=== PATIENT | female | born 1960 | race Caucasian/White ===

== ENCOUNTER 2017-01-22 05:24 | Day surgery (SDC) | payer BC ==
[2017-01-17 09:55] VITALS: BMI 24.0
--- NOTE | 2017-01-18 16:11 | HISTORY & PHYSICAL EXAMINATION ---
DATE OF ADMISSION: 01/22/2017 PREOPERATIVE HISTORY AND PHYSICAL HISTORY OF PRESENT ILLNESS: A 56-year-old female presents for initial evaluation of pain at the recommendation of Dr. Lamar's, located in the right heel, condition has existed for several months, described as burning, sharp, stabbing, began several months ago. She denies any precipitating event or a recent exposure history for this condition. This condition is graded as a 6 on a 10 point scale, gradually worsened over time. Associated signs and symptoms include swelling over the area. She notes Cam walker improve the condition. Oral medication did not help that much, physical therapy increased her discomfort, rest somewhat improved her condition. The patient notes in August is when she notes the more severe pain had started and underwent 7 weeks of therapy and then stopped as it being made worse. She then wore the Cam walker for 2 months, most of the time and she is currently on Percocet for back discomfort which barely touches her foot pain. At nighttime, she notes she is unable to lay flat on her bed or move a certain way, she is uncomfortable. Dr. Lamar in [place] has been treating her conservatively for the past several months and recommended surgical intervention, referred her to our office, due to failure of conservative care. She has been diabetic for over a year, has recently lost some weight and she was able to stop her insulin that she had previously been on. PAST SURGICAL HISTORY: Breast surgery, neck surgery, heart surgery, back surgery, hysterectomy, and gallbladder removal. 2 PAST MEDICAL HISTORY: Gastrointestinal problems, COPD, cardiac disease, stroke, anxiety disorder, depression, arthritis and back problems. MEDICATIONS: Sominex, trazodone, Effexor, Percocet, gabapentin, and verapamil. ALLERGIES: NONSTEROIDALS, CIPRO, AND PENICILLINS. FAMILY HISTORY: Anxiety, stress disorder, depression, back problems, defects, cardiovascular disease, COPD, diabetes, gastrointestinal problems, high cholesterol, hypertension, stroke, cancer, thyroid disease. SOCIAL HISTORY: The patient denies smoking, alcohol use, illicit drug use, and STDs. REVIEW OF SYSTEMS: Unremarkable except chief complaint. PHYSICAL EXAMINATION: VITAL SIGNS: Height 5 feet 7 inches, weight 151 pounds. Body mass index 24. CONSTITUTIONAL: The patient appears well-developed and nourished with good attention to body grooming and habitus. LOWER EXTREMITY VASCULAR: DP palpable. PT palpable. PT was 2/4 bilaterally, DP is 1/4 bilaterally. Popliteal was 1/4 bilaterally. Digital hair is present. DERMATOLOGIC: Right Achilles tendon shows redness. Inspection and palpation of bursa shows soft, skin colored, soft elevated painful mass over the Achilles tendon. NEUROLOGICAL: Touch, pin, vibratory pain, proprioception sensations are normal. Epicritic sensation per Napoleon-Ingrid monofilament 5.07 is intact. MUSCULOSKELETAL: Muscle tone is normal. Muscle strength is 5/5 all groups tested. Examination of posterior aspect of the heel reveals decreased ankle joint, dorsiflexion, knee extended on the right, severe pain directly over the Achilles attachment site, bony prominence posterior superior aspect of the calcaneus and 2 focal areas of tenderness. The heel shows an enlarged posterior superior aspect of the calcaneus with pain to palpation directly over the insertional area of the Achilles tendon. Decreased joint range of motion with knee flexed and extended. IMPRESSION: 1. Ambrosio deformity. 2. Achilles tendinitis, left. 3. Equinus, right. 4. Achilles bursitis, right. 5. Difficulty walking, right lower extremity pain, leg and foot, right. PLAN: I explained the mechanical etiology of discomfort. Treatment consisted of rest, ice, analgesics, nonsteroidal anti-inflammatory drugs, night splints, physical therapy, steroid injections, stretching exercises, orthotics, immobilization. I explained the likely mechanical etiology of the Ambrosio deformity is often called a pump bump, that can occur in 1 or both feet, most commonly caused by the shape of the calcaneus, biomechanics, hereditary and high arches and tight Achilles tendon, the prominent bump on the back of the heel is a bony enlargement that often leads to painful bursitis between the tendon and the bone due to the shoe irritation. In the cases of high arches, the calcaneus is tilted toward the Achilles tendon causing the upper most superior portion of the calcaneus to rub against the tendon. Achilles tendonitis is often associated with the deformity due to local irritation and thickening the tissues. Treatment consists of rest, ice, analgesics, nonsteroidals, anti-inflammatory drugs, heel lifts, heel pad, shoe modification, night splints, physical therapy, steroid injections, stretching exercises, orthotics, immobilization, avoid walking uphill. The patient was informed that nonsurgical treatment is targeted to reduce inflammation of the soft tissue. These conservative treatments will resolve the bursitis, but will not likely shrink the bony projection. Treatment usually begins with nonsurgical measures and surgery is considerable in all other measures have failed and pain is intolerable. Surgical procedures to be performed: 1. Ambrsoio resection. 2. Removal of exostosis posterior calcaneus with possible reattachment of Achilles tendon. 3. Achilles tendon lengthening. 4. Achilles tendon lengthening, right lower extremity. This will be performed under general anesthesia as an outpatient at the hospital in the prone position. Procedure, risks and complications were fully reviewed with the patient. Consent form and foot diagram and illustration reviewed in all their entirety. All the patient's questions were answered. Complications were discussed in detail with the patient including pain, infection, swelling that may or may not be excessive, pins and needles feeling, numbness, metatarsalgia, excessive bleeding, delay or nonhealing of bone, delay or nonhealing of skin, enlarged scar, failure of the procedure, reoccurrence or worsening of condition which may or may not require further surgery, adverse reaction to anesthesia, suture or other implant material, loss of toe, foot, or leg, flail toe, stiff toe, short toe, elevated toe, transfer lesion or callus, peripheral neuritis. Complications such as phlebitis, damage to nerves or vascular structures, recurrent pain, chronic nerve pain or damage, and general medical complications. The patient will required to be nonweightbearing in a cast, immobilization for a minimum of 6-8 weeks followed by weightbearing, cast, immobilization for 2-4 weeks and not return to dress shoes for 3 months depending on the postop edema. The patient is aware this is an elective type procedure and I recommend a second opinion. The patient stated they understood. Consent form was signed with a copy of the foot diagram issued to the patient. Verbal and postoperative instructions were given. The patient will return to the office for a postoperative visit. JJ
[~2017-01-22] VITALS: Ht 170.2 cm; Wt 70.0 kg
[~2017-01-22 05:24] MED LIST: CARI350T28 PO; DIPH25TA4 PO; GABA800T PO; OXYC-106 PO; TOPI50TA24 PO; TRAZ100T29 PO; VENL150C56 PO; VERA120T15 PO
[2017-01-22 05:45] VITALS: BP 135/81; PULSE 79; TEMP 36.5; O2SAT 98; Ht 170.2 cm; Wt 70.0 kg
[2017-01-22] MEDS ORDERED: CLINDAMYCIN 600 MG/54 ML D5W IV SCH (06:00)
[2017-01-22] MEDS ORDERED: SODIUM CHLORIDE 0.9% 1000ML 1,000 ML IV SCH ×3 (06:00→07:04)
[2017-01-22] MEDS ORDERED: CLINDAMYCIN PHOS 150 MG/ML 2 ML VIAL IV SCH (06:00)
[2017-01-22] MEDS ORDERED: MEPIVACAINE HCL 1.5% 30 ML VIAL ONE (06:45)
[2017-01-22] MEDS ORDERED: BUPIVACAINE 0.5 % 5 MG/1 ML PF 10ML VIAL ONE ×2 (06:45)
[2017-01-22] MEDS ORDERED: CLONIDINE HCL 100 MCG/ML SYRINGE ONE (06:46)
[2017-01-22] MEDS ORDERED: MIDAZOLAM HCL 1 MG/ML 2ML VIAL ONE (06:59)
--- NOTE | 2017-01-22 06:59 | History & Physical Bridge Note ---
H&P Re-Evaluation Bridge Note: I have examined the patient, reviewed the History & Physical and in the interval since the performance of the History & Physical I have noted the following changes of clinical significance: No changes noted
[2017-01-22] MEDS ORDERED: FENTANYL CITRATE INJ 50 MCG/1 ML 2 ML VIAL ONE (07:00)
--- NOTE | 2017-01-22 07:03 | Discharge Instructions ---
Discharge Instructions Date of Service January 22, 2017. Admission Reason for Admission: Ambrosio's Deformity Discharge Discharge Diagnosis / Problem: same as diagnosis Discharge Goals Goal(s): Decrease discomfort Activity Recommendations Activity Limitations: as noted below Medications: * Resume previous medications unless instructed by your surgeon. * Take your medications as prescribed. Call our office ([phone]) at any time, if you experience severe pain that does not subside shortly after taking your pain medication. Activity: * Do not put any standing weight on your operated foot/ankle. Use the crutches or walker as instructed. Special Care: * Keep your bandage clean and dry. Do not remove your bandage unless otherwise instructed. A small amount of blood may appear on the bandage over the surgical site. Call our office ([phone]) if you bandage becomes blood-soaked or wet. * Elevate your operated foot/ankle on pillows, above the level of your heart, as often as possible during the first 2-3 days following surgery. Keep your knee flexed slightly with a pillow under your knee when you elevate your foot/ankle. * Apply a ice bag to your foot/ankle over the operative site for 20-30 minutes out of each hour while you are awake. Do not allow the ice bag to directly contact bare skin. * Avoid bumping or handling any pins visible in your toes. If any pin feels or appears loose, call the office ([phone]). * Take your oral temperature in the morning and at bedtime. Call our office ([phone]) if your temperature rises above 101 degrees Fahrenheit. Call your surgeon's office at ([phone]) for any problems or concerns such as excessive bleeding and/or pain unrelieved by your prescribed pain medications. If you have any questions, please do not hesitate to ask them. Avoid all tobacco products. If you need help to stop smoking, call [place]'s FREE QUITLINE at . This is a free call. Follow-up: Follow-up with Dr. Amor . Current Hospital Diet Patient's current hospital diet: Discharge Diet Recommended Diet: Regular Diet Pending Studies Studies pending at discharge: no Medical Emergencies . Who to Call and When: Medical Emergencies: If at any time you feel your situation is an emergency, please call 911 immediately. . Non-Emergent Contact Non-Emergency issues call your: Primary Care Provider . "Provider Documentation" section prepared by Caro Aguilar. . VTE Core Measure Inpt VTE Proph given/why not?: Treatment not indicated
[2017-01-22] MEDS ORDERED: BUPIVACAINE 0.5 % 5 MG/1 ML MPF 30ML VIAL ONE (07:11)
[2017-01-22] MEDS ORDERED: EpHEDrine SULFATE INJ 50 MG/ML AMP IV PRN (07:15)
[2017-01-22] MEDS ORDERED: PROMETHAZINE HCL INJ 12.5 MG in SODIUM CHLORIDE 0.9% 50ML 50 ML IV PRN (07:15)
[2017-01-22] MEDS ORDERED: ONDANSETRON INJ 2 MG/ML 2 ML VIAL IV PRN (07:15)
[2017-01-22] MEDS ORDERED: LABETALOL HCL IV 5 MG/ML 20ML IV PRN (07:15)
[2017-01-22] MEDS ORDERED: NALOXONE HCL 0.4 MG/1 ML VIAL/CARP IV PRN (07:15)
[2017-01-22] MEDS ORDERED: ATROPINE SULFATE 0.1 MG/ML 5ML SYR IV PRN (07:15)
[2017-01-22] MEDS ORDERED: FLUMAZENIL 0.1 MG/1 ML 10 ML VIAL IV PRN (07:15)
[2017-01-22] MEDS ORDERED: DEXAMETHASONE SOD INJ 4 MG/ML VIAL ONE (08:00)
[2017-01-22] MEDS ORDERED: LIDOCAINE HCL 2% 2 ML VIAL (20MG/ML) ONE (08:00)
[2017-01-22] MEDS ORDERED: LARYING-O-JET KIT (LTA) EXT ONE ×2 (08:00)
[2017-01-22] MEDS ORDERED: CISATRACURIUM BESYLATE IV SOLN 2 MG/ML 10 ML VIAL ONE (08:00)
[2017-01-22] MEDS ORDERED: GLYCOPYRROLATE INJ 0.2 MG/ML VIAL ONE (08:00)
[2017-01-22] MEDS ORDERED: PROPOFOL IV EMULSION 10 MG/ML 20 ML VIAL IV ONE (08:00)
[2017-01-22] MEDS ORDERED: NEOSTIGMINE METHYLSULFATE 5 MG/5 ML SYR ONE (08:00)
[2017-01-22] MEDS ORDERED: ONDANSETRON INJ 2 MG/ML 2 ML VIAL ONE (08:00)
[2017-01-22] MEDS ORDERED: EpHEDrine SULFATE 50MG/5ML SYR ONE (08:00)
--- NOTE | 2017-01-22 08:39 | DIAGNOSTIC IMAGING REPORT ---
RIGHT HEEL MIN 2 VIEWS CLINICAL HISTORY: LENGTHENING RIGHT LOWER EXT. REMOVAL OF EXOSTOSIS POSTERIOR HEEL Right COMPARISON: None. DISCUSSION: The bones and joint spaces appear intact. There is no evidence of fracture, dislocation or bony disease. There is no evidence for soft tissue swelling. Postoperative changes to the posterior calcaneus IMPRESSION: Image intensifier for intraoperative surgical evaluation purposes Electronically signed by: Jim Clark M.D. 01/22/2017 8:37 AM Dictated Date/Time: 01/22/2017 8:37 AM
[2017-01-22] MEDS ORDERED: HYDROmorphone INJ 1 MG/ML SYR ONE (09:06)
[2017-01-22] MEDS ORDERED: HYDROmorphone INJ 2 MG/ML SYR/VIAL IV PRN (09:30)
[2017-01-22 09:48] VITALS: BP 133/65; PULSE 70; TEMP 36.4; O2SAT 94
--- NOTE | 2017-01-22 09:48 | OPERATIVE REPORT ---
DATE OF OPERATION: 01/22/2017 SURGEON: Caro Amor DPM PREOPERATIVE DIAGNOSES: Achilles tendonitis, Ambrosio deformity, exostosis posterior calcaneus. POSTOPERATIVE DIAGNOSES: Same. PROCEDURES: 1. Ambrosio's resection right. 2. Exostectomy partial calcaneus, right. 3. Repair and reattaching the Achilles tendon, right lower extremity. 4. Tendo Achilles lengthening, right lower extremity. ANESTHESIA: Regional field block performed by anesthesia in preoperative holding, general anesthesia. HEMOSTASIS: Pneumatic thigh tourniquet inflated to a level of 350 mmHg for a total tourniquet time of 52 minutes. MATERIALS: Arthrex SpeedBridge with 4 BioComposite SwiveLock anchors measuring 4.75 each, 2-0 and 3-0 Vicryl, and 4-0 nylon. FINDINGS: Enlarged retrocalcaneal spur more medial than lateral and enlarged posterior superior aspect of the Ambrosio's on the calcaneus. COMPLICATIONS: None. DESCRIPTION OF PROCEDURE: The patient was brought to the OR and placed on the OR table in supine position. Upon completion of general anesthesia by the anesthesia department, a well-padded thigh tourniquet was applied to the right lower extremity. The extremity was scrubbed, prepped and draped in the usual aseptic fashion. The patient was found prone on the table and elevated and exsanguinated and tourniquet raised to a level of 350 mmHg. Attention was directed to the posterior aspect of the Achilles tendon where approximately 10 cm incision was made just lateral to the Achilles tendon, was taken down to peritenon through the equinus deformity that was present and Achilles tendon lengthening was performed. Distal posterior fibers and 10 cm the more anterior proximal fibers were split using a #11 blade and slid on a final plain in a Z-type fashion allowing 10 degrees of dorsiflexion. At this time, the posterior superior aspect of the calcaneus was resected with partial removal of the calcaneus over this area. The tendon attachment was slightly reflected; however, the large gryphotic spur was quite encompassing and over 90% of the fibers were released. Removal of the exostosis was occurred. There was small portion of fibers still remaining, although the majority of the tendon was released. The tendon was repaired and reattached to the posterior aspect of the calcaneus using Arthrex SpeedBridge with 4 SwiveLock 4.75 anchors. Wound was copiously lavaged with normal saline. Closure began in the deep structures using 2-0 Vicryl. Superficial deep structures closed using 3-0 Vicryl. Skin margins closed using 4-0 nylon. Pneumatic ankle tourniquet was released and a dry sterile compressive dressing consisting of Adaptic soaked, 4 x 4's, Carlos, Webril and a well-padded posterior splint was applied. The patient was transported to recovery room with vital signs stable and neurovascular status intact. I attest to the content of the Intraoperative Record and any orders documented therein. Any exceptio ns are noted below.
--- NOTE | 2017-01-22 10:11 | DIAGNOSTIC IMAGING REPORT ---
RIGHT FOOT MIN 3 VIEWS ROUTINE CLINICAL HISTORY: Postop right foot. COMPARISON STUDY: Right heel 01/22/2017. FINDINGS: Overlying splint material obscures fine bony detail. Postoperative changes at the posterior calcaneus demonstrating partial resection. There is soft tissue gas in the pre-Achilles space due to the postoperative change. No fracture or dislocation. IMPRESSION: Postoperative changes within the posterior calcaneus. Electronically signed by: Bora Carranza M.D. 01/22/2017 10:10 AM Dictated Date/Time: 01/22/2017 10:08 AM
[2017-01-22 10:18] VITALS: BP 130/60; PULSE 67; TEMP 36.6; O2SAT 94
[2017-02-20] MEDS ORDERED: OXYC-59 PO (12:13)
[2017-03-13] MEDS ORDERED: RXC5 PO (15:07)
== END 2017-01-22 10:29 | disposition home or self-care (01) ==
LOC: C.ACU 05:24
PROVIDERS: ATTEND Podiatrist Foot & Ankle Surgery
DX: M76.61 Achilles tendinitis, right leg (principal); M77.31 Calcaneal spur, right foot; J44.9 Chronic obstructive pulmonary disease, unspecified; I10 Essential (primary) hypertension; E11.9 Type 2 diabetes mellitus without complications; F32.9 Major depressive disorder, single episode, unspecified; Z90.710 Acquired absence of both cervix and uterus; Z86.73 Personal history of transient ischemic attack (TIA), and cerebral infarction without residual deficits; Z79.899 Other long term (current) drug therapy; Z98.890 Other specified postprocedural states; Z88.1 Allergy status to other antibiotic agents; Z88.0 Allergy status to penicillin; Z68.24 Body mass index [BMI] 24.0-24.9, adult; Z82.49 Family history of ischemic heart disease and other diseases of the circulatory system; Z83.3 Family history of diabetes mellitus; Z82.3 Family history of stroke; Z81.8 Family history of other mental and behavioral disorders

== ENCOUNTER 2017-03-13 05:05 | Inpatient (IN) | payer BC, OTHER ==
[2017-02-19 12:25] VITALS: BMI 25.0
--- NOTE | 2017-02-19 13:19 | PAT Medication Instructions ---
Service Date Feb 19, 2017. Current Home Medication List Carisoprodol (Soma), 350 MG PO TID PRN for Pain Diphenhydramine Hcl (Sleep) (Sominex), 50 MG PO HS Gabapentin (Neurontin), 800 MG PO TID PRN for RN Topiramate (Topamax), 50 MG PO BID Trazodone Hcl (Trazodone), 150 MG PO HS Venlafaxine Hcl (Effexor Extended Rel), 150 MG PO QAM Verapamil (Calan), 120 MG PO HS Medication Instructions For Your Scheduled Surgery - Hold the following medications the morning of surgery: Carisoprodol (Soma), 350 MG PO TID PRN for Pain - Take the following medications the morning of surgery with a sip of water: Venlafaxine Hcl (Effexor Extended Rel), 150 MG PO QAM Topiramate (Topamax), 50 MG PO BID Gabapentin (Neurontin), 800 MG PO TID PRN for RN (if needed) Percocet 10/325mg (okay to take up to 4 hours prior to surgery if needed) - Take the following medications as scheduled the night before surgery: Verapamil (Calan), 120 MG PO HS Topiramate (Topamax), 50 MG PO BID Trazodone Hcl (Trazodone), 150 MG PO HS Gabapentin (Neurontin), 800 MG PO TID PRN for RN (if needed) Diphenhydramine Hcl (Sleep) (Sominex), 50 MG PO HS Carisoprodol (Soma), 350 MG PO TID PRN for Pain (if needed) Percocet 10/325mg (if needed) If you have any questions please call us at [phone] or [phone] or [phone]
[2017-02-19 14:00] LABS: BASO % 0.7 %; BASO ABS # 0.04 K/uL (0-0.2); COMPLETE YES; EOS % 3.7 %; HEMATOCRIT 37.2 % (37-47); IG% 0.2 %; LYMPH % 26.6 %; LYMPH ABS # 1.58 K/uL (1.2-3.4); MEAN CELL VOLUME 91.2 fL (80-100); MEAN CORPUSCULAR HEMOGLOBIN 28.2 pg (25-34); MEAN CORPUSCULAR HGB CONC 30.9 g/dl (32-36); MONO % 7.4 %; NEUT % 61.4 %; PLATELET COUNT 253 K/uL (130-400); RED BLOOD COUNT 4.08 M/uL (4.2-5.4); WHITE BLOOD COUNT 5.94 K/uL (4.8-10.8)
[2017-02-19 14:01] LABS: BUN/CREATININE RATIO 12.6 (10-20); CALCIUM 8.4 mg/dl (8.5-10.1); CREATININE 0.86 mg/dl (0.60-1.20); POTASSIUM 3.8 mmol/L (3.5-5.1)
[2017-02-19 15:01] LABS: URINE APPEARANCE CLEAR (CLEAR); URINE BILIRUBIN NEG (NEG); URINE COLOR YELLOW; URINE EPITHELIAL CELL AUTO 20-30 /lpf (0-5); URINE NITRITE NEG (NEG); URINE PH 5.5 (4.5-7.5); URINE SPECIFIC GRAVITY 1.016 (1.000-1.030); UROBILINOGEN NEG (NEG)
[2017-02-19 15:04] LABS: MANUAL MICROSCOPIC REQUIRED? NO; REVIEW REQ? NO
[2017-03-13] VITALS (13 sets, daily range): BP systolic 91–156; BP diastolic 49–75; PULSE 69–104; TEMP 36.6–37; O2SAT 94–99; Ht 172.7 cm; Wt 73.8 kg
[~2017-03-13] VITALS: Ht 172.7 cm; Wt 73.8 kg
[~2017-03-13 05:05] MED LIST changes: -OXYC-106 PO; +OXYC-59 PO
[2017-03-13] MEDS ORDERED: [UNRECOGNIZED DRUG - OTHER] PO (05:45)
[2017-03-13] MEDS ORDERED: LACTATED RINGER'S 1000ML 1,000 ML IV SCH (06:00)
[2017-03-13] MEDS ORDERED: CEFAZOLIN 1000MG/55 ML D5W IV SCH (06:00)
[2017-03-13] MEDS ORDERED: MIDAZOLAM HCL 1 MG/ML 2ML VIAL ONE (06:32)
[2017-03-13] MEDS ORDERED: FENTANYL CITRATE INJ 50 MCG/1 ML 2 ML VIAL ONE ×3 (06:32→08:15)
[2017-03-13] MEDS ORDERED: BACITRACIN 50000 UNIT VIAL ONE (06:58)
[2017-03-13] MEDS ORDERED: SODIUM CHLORIDE 0.9% PF 50 ML VIAL ONE (06:58)
--- NOTE | 2017-03-13 07:30 | History and Physical ---
History & Physical Date Mar 13, 2017. Chief Complaint neck and arm pain History of Present Illness The patient is a 56 year old female with complaints of Additional History Hepatic Disease: No Endocrine Disorder: No Kidney Disease: No Hypertension: No Heart Disease: No Bleeding Tendencies: No Infectious Diseases: No Allergies Coded Allergies: Ciprofloxacin (Verified Allergy, Unknown, ITCH AND RASH, 03/13/17) Metformin (Verified Allergy, Unknown, NAUSEA VOMITNG DIARRHEA, 03/13/17) Varenicline (Verified Allergy, Unknown, BAD NIGHTMARES, 03/13/17) NSAIDs (Verified Adverse Reaction, Intermediate, N/V AND DIARRHEA, 03/13/17 ) Penicillins (Verified Adverse Reaction, Mild, N/V, 03/13/17) Home Medications Scheduled Diphenhydramine Hcl (Sleep) (Sominex), 50 MG PO HS Topiramate (Topamax), 50 MG PO BID Trazodone Hcl (Trazodone), 150 MG PO HS Venlafaxine Hcl (Effexor Extended Rel), 150 MG PO QAM Verapamil (Calan), 120 MG PO HS [Somapur], 1 TAB PO HS Scheduled PRN Carisoprodol (Soma), 350 MG PO TID PRN for Pain Gabapentin (Neurontin), 800 MG PO TID PRN for Pain Oxycodone/Acetaminophen 10MG/325MG (Percocet 10MG/325MG), 1 TAB PO Q4H PRN for Pain Physical Examination Skin: warm/dry, no rash Eyes: normal inspection, EOMI, sclerae normal ENT: normal ENT inspection, pharynx normal Head: normocephalic, atraumatic Neck: supple, no adenopathy, trachea midline Respiratory/Chest: lungs clear, normal breath sounds, no respiratory distress Cardiovascular: regular rate, rhythm, no edema, no murmur Abdomen / GI: normal bowel sounds, non tender Back: normal inspection Extremities: normal inspection, normal range of motion Neurologic/Psych: no motor/sensory deficits, alert, normal reflexes, oriented x 3 Diagnosis cervical stenosis Plan of Treatment removal instrumentation C4-C6, ACDF C6-7 possible C7-T1
[2017-03-13] MEDS ORDERED: HYDROmorphone INJ 2 MG/ML SYR/VIAL ONE (07:59)
[2017-03-13] MEDS ORDERED: ROCURONIUM BROMIDE 10 MG/ML 5 ML VIAL ONE (08:52)
[2017-03-13] MEDS ORDERED: ONDANSETRON INJ 2 MG/ML 2 ML VIAL ONE (08:52)
[2017-03-13] MEDS ORDERED: EpHEDrine SULFATE 50MG/5ML SYR ONE (08:52)
[2017-03-13] MEDS ORDERED: NEOSTIGMINE METHYLSULFATE 1 MG/ML 10ML VIAL ONE (08:52)
[2017-03-13] MEDS ORDERED: LIDOCAINE HCL 2% 2 ML VIAL (20MG/ML) ONE (08:52)
[2017-03-13] MEDS ORDERED: DEXAMETHASONE SOD INJ 4 MG/ML VIAL ONE (08:52)
[2017-03-13] MEDS ORDERED: PROPOFOL IV EMULSION 10 MG/ML 20 ML VIAL IV ONE (08:52)
[2017-03-13] MEDS ORDERED: PHENYLEPHRINE 100MCG/ML 5ML SYR ONE (08:52)
[2017-03-13] MEDS ORDERED: GLYCOPYRROLATE INJ 0.2 MG/ML VIAL ONE (08:52)
[2017-03-13] MEDS ORDERED: ATROPINE SULFATE 0.1 MG/ML 5ML SYR IV PRN (09:00)
[2017-03-13] MEDS ORDERED: ONDANSETRON INJ 2 MG/ML 2 ML VIAL IV PRN ×2 (09:00→09:30)
[2017-03-13] MEDS ORDERED: MEPERIDINE HCL 25 MG/ML CARP IV PRN (09:00)
[2017-03-13] MEDS ORDERED: LABETALOL HCL IV 5 MG/ML 20ML IV PRN (09:00)
[2017-03-13] MEDS ORDERED: HYDROmorphone INJ 1 MG/ML SYR IV PRN (09:00)
[2017-03-13] MEDS ORDERED: EpHEDrine SULFATE INJ 50 MG/ML AMP IV PRN (09:00)
--- NOTE | 2017-03-13 09:18 | [facility] Post Operative Brief Note ---
Immediate Operative Summary Operative Date Mar 13, 2017. Pre-Operative Diagnosis Cervical stenosis Post-Operative Diagnosis Cervical Stenosis Procedure(s) Performed acdf C6-7 C7-T1 [address] Micky Boyd Sales Service Technician Surgeon(s) Ivanna Stevens PA-C Estimated Blood Loss 30 Findings stenosis Specimens A: Explanted hardware cervical spine C4-C6
[2017-03-13] MEDS ORDERED: FLOSEAL HEMOSTATIC MATRIX 10ML TOP ONE (09:21)
[2017-03-13] MEDS ORDERED: DEXAMETHASONE INJ 8 MG in SYRINGE 0 ML IV PRN (09:30)
[2017-03-13] MEDS ORDERED: HYDROmorphone INJ 0.5 MG/0.5 ML SYR IV PRN (09:30)
[2017-03-13] MEDS ORDERED: MAGNESIUM HYDROXIDE SUSP 30 ML UDC PO PRN (09:30)
[2017-03-13] MEDS ORDERED: DO NOT ADMINISTER FLU VACCINE PRN ×3 (09:30)
[2017-03-13] MEDS ORDERED: LORAZEPAM INJ 0.5 MG in SYRINGE 0.75 ML IV PRN (09:30)
[2017-03-13] MEDS ORDERED: ACETAMINOPHEN IV 100 ML IV PRN (09:30)
[2017-03-13] MEDS ORDERED: NALOXONE HCL 0.4 MG/1 ML VIAL/CARP IV PRN (09:30)
[2017-03-13] MEDS ORDERED: LORAZEPAM 0.5 MG TAB PO PRN (09:30)
[2017-03-13] MEDS ORDERED: CARISOPRODOL 350 MG TAB PO PRN (09:30)
[2017-03-13] MEDS ORDERED: DO NOT ADMINISTER PNEUMOCOCCAL VACCINE PRN ×2 (09:30)
[2017-03-13] MEDS ORDERED: GABAPENTIN 800 MG TAB PO PRN (09:30)
[2017-03-13] MEDS ORDERED: DiphenhydrAMINE HCL 50 MG/ML VIAL IV PRN (09:30)
[2017-03-13] MEDS ORDERED: RACEPINEPHRINE 2.25% NEBU SOLN 0.5 ML VIAL INH PRN (09:30)
--- NOTE | 2017-03-13 09:39 | DIAGNOSTIC IMAGING REPORT ---
CERVICAL 2 OR 3 VIEWS CLINICAL HISTORY: 56 year-old Female presenting with ACDF C4-C6/possible C7-T1. TECHNIQUE: 3 fluoroscopic spot views of the cervical spine were obtained including frontal and lateral views. COMPARISON: 10/02/2010. FINDINGS/IMPRESSION: Interbody spacers at C4-5 and C5-6 with anterior cervical plate and screw fixation of C6-T1. This is unchanged in appearance from prior exam. No gross evidence of prevertebral soft tissue thickening. Electronically signed by: Zaheer Liang 03/13/2017 9:37 AM Dictated Date/Time: 03/13/2017 9:33 AM
--- NOTE | 2017-03-13 09:53 | [facility] Operative Report ---
Operative Report Operative Date Mar 13, 2017. Pre-Operative Diagnosis Cervical stenosis Post-Operative Diagnosis same Procedure(s) Performed #1 removal of instrumentation C4 5 and C5 6 #2 expiration of fusion C4 5 and C5 6 #3 anterior cervical discectomy and bilateral foraminotomies C6 7 C7-T1 # 4 anterior cervical arthrodesis C6 7 and C7-T1 #5 placement of allograft filled with DBM C6 7 C7-T1 #6 application of petty plate and screws C6 to T1. Surgeon Dr. Micky Boyd Carburetor Specialist Surgeon(s) Ivanna Stevens PA-C Estimated Blood Loss 30ml Findings Spinal stenosis Specimens A: Explanted hardware cervical spine C4-C6 Description of Procedure Patient was met with preoperative case discussed PROGRESS. The patient was taken back to the operative suite and after undergoing successful inhibition via the department of anesthesia was placed in supine position adjusted with head in Braxton bolt header. All bony promises well-padded eyes were inspected to ensure there is no external pressure placed upon them. At this time the interstitial was once prepped and draped in the normal sterile fashion. Longitudinal incision was placed on the right anterior aspect of cervical spine. Sharp dissection assistance of bipolar cautery was performed down to and exposing the anterior cervical spine from C4 to T1. We identified the previous plate was removed without difficulty. I explored the fusion at the C4 5 and C5 6 levels. It was intact. Then performed a complete discectomy of C6 7 out to the uncovertebral joints bilaterally. Luckey distraction pins were utilized to assist us no visualization. I did remove all posterior annular fibers and longitudinal ligament performing bilateral foraminotomies. Endplates were then burred to subcortical bleeding bone and a 7 mm cortical R graft filled with DBM tapped in position. The distraction apparatus was removed proceeded to the C7-T1 level. Again a complete discectomy performed out to the uncovertebral joints bilaterally Luckey distracting pins again utilized to assist us no visualization. I did remove all posterior annular fibers perform bilateral foraminotomies. End plates were then burred to subcortical bleeding bone 8 mm cortical allograft filled with DBM tapped in which position. Distraction apparatus was removed. All anterior osteophytes burred to a smooth cortical surface. A far complete screws identified with the assistance of fluoroscopy. Incision was in copious irrigated explored to ensure there is no damage to signing structures remaining bleeding. 10 round JAMES drain inserted. Incision then closed with 2 Vicryl simultaneous the 4-0 Monocryl for final skin closure. Steri-Strips sterile dressing placed patient taken to PACU in stable condition. I attest to the content of the Intraoperative Record and any orders documented therein. Any exceptions are noted below.
[2017-03-13] MEDS: FENTANYL CITRATE INJ 50 MCG/1 ML 2 ML VIAL IV PRN ×6 (09:56→10:22)
--- NOTE | 2017-03-13 10:40 | Anesthesiology Progress Note ---
Anesthesia Post Op Note Date & Time Mar 13, 2017 at 10:40 Vital Signs Pain Intensity: 9 Vital Signs Past 12 Hours Date Time Temp Pulse Resp B/P (MAP) Pulse Ox O2 Delivery O2 Flow Rate FiO2 03/13/17 10:30 81 18 109/62 97 Nasal Cannula 4 03/13/17 10:20 86 14 118/64 96 Nasal Cannula 4 03/13/17 10:10 86 14 129/69 99 Nasal Cannula 4 03/13/17 10:00 91 14 158/101 99 Nasal Cannula 4 03/13/17 09:50 79 14 151/80 99 Mask 10 03/13/17 09:40 79 14 147/72 98 Mask 10 03/13/17 09:34 36.4 82 14 158/99 97 Mask 10 03/13/17 05:47 36.9 69 18 108/49 98 Room Air Notes Mental Status: alert / awake / arousable, participated in evaluation Pt Amnestic to Procedure: Yes Nausea / Vomiting: adequately controlled Pain: adequately controlled Airway Patency, RR, SpO2: stable & adequate BP & HR: stable & adequate Hydration State: stable & adequate Anesthetic Complications: no major complications apparent
[2017-03-13] MEDS ORDERED: SCOPOLAMINE 1.5 MG TDSY TD SCH (14:00)
[2017-03-13] MEDS: SODIUM CHLORIDE 0.9% 1000ML 1,000 ML IV SCH ×2 (14:28→23:41)
[2017-03-13] MEDS: OXYCODONE HCL IR 5 MG TAB (IMMEDIATE RELEASE) PO PRN ×2 (14:32→22:20)
[2017-03-13] MEDS ORDERED: RXC5 PO (15:07)
--- NOTE | 2017-03-13 15:08 | Discharge Instructions ---
Discharge Instructions Date of Service Mar 13, 2017. Admission Reason for Admission: Cervical Spinal Stenosis Discharge Discharge Diagnosis / Problem: cervical stenosis Discharge Goals Goal(s): Improve function Activity Recommendations Activity Limitations: per Instructions/Follow-up section . Instructions / Follow-Up Instructions / Follow-Up ACTIVITY RECOMMENDATIONS: SELF CARE INSTRUCTIONS AFTER CERVICAL FUSIONS 1. No smoking. Smoking drastically decreases the chance of a solid fusion. 2. No bending, lifting more than 5 pounds, or twisting (roll like a log when turning in bed). 3. You may shower 3 days after surgery. Thoroughly dry wound. Do not soak in the tub. 4. Cervical collar: Must be worn at all times including sleeping. You may remove the brace only to bath, eat and if you are sitting in a recliner. 5. Please walk as much as you can for exercise. Gradually increase the distance that you walk as your endurance increases. SPECIAL CARE INSTRUCTIONS: VERY IMPORTANT TO READ AND REVIEW A. Do not take any anti-inflammatory medications (i.e. Indocin, Advil, Aspirin, Naprosyn, Aleve, Motrin, etc.) as these may inhibit the chance of a solid fusion. Tylenol is okay to take. B. Your surgical incision has been closed with a cosmetic suture under the skin that will dissolve in about 6 weeks. In 14 days, you can use a pair of clean scissors and cut the suture that is left outside of the skin at the ends of your incision. C. Complications are uncommon, but please contact us if you have any signs or symptoms of: 1. wound infection (fever higher than 102.5 degrees F, redness, separation of wound, drainage, or increasing pain from the incision) 2. blood clots in legs (pain, swelling, redness and warmth in legs) 3. urinary tract infection (fever higher than 102.5 degrees, burning upon urination or increased frequency of urination) 4. nerve problems (inability to walk on your toes or heels, numbness, loss of bowel or bladder control) 5. any other symptoms that concern you. D. Please call the office at if you have any concerns or questions about your operation or recovery. MANAGING PAIN AFTER SPINAL SURGERY 1. Narcotic medication is intended for short-term use and will be provided for surgical pain. Surgical pain usually lasts for a period of 4-6 weeks. Narcotic medication includes Percocet, Vicodin, Darvocet, Tylenol #3 or Lortab. 2. Longer-term pain is more appropriately treated with non-narcotic medication such as Tylenol ES. 3. Muscle spasm is not appropriately treated with narcotics. Muscle relaxers such as Soma, Flexeril or Skelaxin can be used along with Tylenol ES. 4. Remember that we all live with some "aches and pains". This is not unusual or uncommon after an injury or as we get older. 5. We will provide appropriate medication within the normal guidelines of their prescribed use. We will also be very cautious and aware of potential abuse and extended duration of patients' medication needs. 6. Please allow 2-3 days to process refills. Prescriptions will not be mailed but must be picked up at the office. FOLLOW UP VISIT: Keep your scheduled follow-up appointment. Any questions, please call the office at . Current Hospital Diet Patient's current hospital diet: Clear Liquid Diet Discharge Diet Recommended Diet: Regular Diet Procedures Procedures Performed: C6-C7, C7-T1 Anterior Cervical Discectomy and Fusion; Removal of Intervertebral Disc / Decompression, Allograft; Anterior Plate and Screw Fixation; C4-C5, C5-C6 Hardware Removal Pending Studies Studies pending at discharge: no Medical Emergencies . Who to Call and When: Medical Emergencies: If at any time you feel your situation is an emergency, please call 911 immediately. . Non-Emergent Contact Non-Emergency issues call your: Primary Care Provider . "Provider Documentation" section prepared by Micky Boyd. . VTE Core Measure Inpt VTE Proph given/why not?: Kalee Tineo, SCD's
[2017-03-13] MEDS ORDERED: NURSING VERBAL MED ORDER ONE (15:30)
[2017-03-13] MEDS ORDERED: ALBUTEROL HFA 8 GM INHALER INH PRN (15:45)
[2017-03-13] MEDS: CLINDAMYCIN IV 600 MG in DEXTROSE 5% 50ML 50 ML IV SCH ×2 (16:48→23:40)
[2017-03-13] MEDS: DEXAMETHASONE INJ 6 MG in SYRINGE 0 ML IV SCH ×2 (16:48→23:41)
[2017-03-13] MEDS: CHECK SCOPOLAMINE PATCH PLACEMENT SCH ×2 (16:51→23:32)
[2017-03-13] MEDS ORDERED: TRAZODONE HCL 50 MG TAB PO SCH (21:00)
[2017-03-13] MEDS ORDERED: VERAPAMIL HCL 120 MG TABCR PO SCH (21:00)
[2017-03-13] MEDS: DOCUSATE SODIUM 100 MG CAP PO SCH (21:49)
[2017-03-13] MEDS: TOPIRAMATE 25 MG TAB PO SCH (21:50)
[2017-03-14] VITALS (9 sets, daily range): BP systolic 120–163; BP diastolic 67–76; PULSE 18–90; TEMP 36.6–37; O2SAT 94–97
[2017-03-14] MEDS: OXYCODONE HCL IR 5 MG TAB (IMMEDIATE RELEASE) PO PRN (05:08)
[2017-03-14] MEDS: DEXAMETHASONE INJ 6 MG in SYRINGE 0 ML IV SCH (08:19)
[2017-03-14] MEDS: CHECK SCOPOLAMINE PATCH PLACEMENT SCH (08:20)
[2017-03-14] MEDS: CLINDAMYCIN IV 600 MG in DEXTROSE 5% 50ML 50 ML IV SCH (08:20)
[2017-03-14] MEDS ORDERED: VENLAFAXINE HCL XR 150 MG CAPXR PO SCH (09:00)
[2017-03-14] MEDS: DOCUSATE SODIUM 100 MG CAP PO SCH (09:24)
[2017-03-14] MEDS: TOPIRAMATE 25 MG TAB PO SCH (09:24)
--- NOTE | 2017-03-14 10:58 | Discharge Summary ---
Orthopedic Discharge Summary Admission Date/Reason Mar 13, 2017 at 07:00 Cervical Spinal Stenosis. Discharge Date/Disposition Mar 14, 2017 Home Diagnosis Principal Diagnosis: Cervical stenosis Admission Physical Exam As per Admitting History & Physical. Hospital Course Patient underwent anterior cervical discectomy and fusion. Postoperative leash was swallowing without difficulty no hoarseness. Arm symptoms were poorly improved. JAMES drain decreased appropriately. Subsequently discharged home. Discharge orders and instructions found on the chart for further review. Discharge Instructions Please refer to the electronic Patient Visit Report (Discharge Instructions) for additional information.
[2017-03-15] MEDS ORDERED: BISACODYL 10 MG SUPP PR PRN (06:00)
[2017-03-15] MEDS ORDERED: BISACODYL 5 MG TABEC PO PRN (06:00)
[2017-03-16] MEDS ORDERED: POLYETHYLENE (MIRALAX) 17 GM PACK PO SCH (09:00)
== END 2017-03-14 11:14 | disposition home or self-care (01) | DRG 473 ==
LOC: C.ACU 05:05 → C.3E 07:00 → ENRESERV 10:26
PROVIDERS: ADMIT Orthopaedic Surgery Orthopaedic Surgery of the Spine; ATTEND Orthopaedic Surgery Orthopaedic Surgery of the Spine
PROC: 0RP10AZ Removal of Interbody Fusion Device from Cervical Vertebral Joint, Open Approach (ICD-10-PCS; principal; 2017-03-13 07:45)
PROC: 0RG10Z0 (ICD-10-PCS; principal; 2017-03-13 07:45)
PROC: [UNRECOGNIZED PROCEDURE] (principal; 2017-03-13 07:45)
PROC: 0RT30ZZ Resection of Cervical Vertebral Disc, Open Approach (ICD-10-PCS; principal; 2017-03-13 07:45)
DX: M48.02 Spinal stenosis, cervical region (principal); Z79.899 Other long term (current) drug therapy; Z88.1 Allergy status to other antibiotic agents; Z88.6 Allergy status to analgesic agent; Z88.0 Allergy status to penicillin; Z88.8 Allergy status to other drugs, medicaments and biological substances; Z98.1 Arthrodesis status

== ENCOUNTER 2017-12-17 11:06 | Emergency (ER) | payer BC, OTHER ==
[~2017-12-17 11:06] MED LIST changes: +RXC5 PO; +[UNRECOGNIZED DRUG - OTHER] PO
[2017-12-17 11:18] VITALS: TEMP 36.7
--- NOTE | 2017-12-17 12:52 | DIAGNOSTIC IMAGING REPORT ---
CHEST ONE VIEW PORTABLE CLINICAL HISTORY: EVALUATE ALTERED MENTAL STATUS/WEAKNESS COMPARISON STUDY: Chest radiograph September 20, 2010. FINDINGS: Anterior spine fusion is noted. There is no pneumothorax or pleural effusion. There is no consolidation. Linear left basilar opacity suggestive atelectasis. There is pulmonary vascular congestion without overt pulmonary edema. IMPRESSION: Pulmonary vascular congestion. Electronically signed by: James Quigley M.D. 12/17/2017 12:50 PM Dictated Date/Time: 12/17/2017 12:47 PM
[2017-12-17 13:01] LABS: BASO % 0.5 %; BASO ABS # 0.03 K/uL (0-0.2); EOS % 1.8 %; EOS ABS # 0.11 K/uL (0-0.5); HEMATOCRIT 36.7 % (37-47); HEMOGLOBIN 11.7 g/dL (12.0-16.0); IG# 0.01 K/uL (0.00-0.02); LYMPH % 35.8 %; LYMPH ABS # 2.21 K/uL (1.2-3.4); MEAN CELL VOLUME 89.5 fL (80-100); MEAN CORPUSCULAR HEMOGLOBIN 28.5 pg (25-34); MEAN CORPUSCULAR HGB CONC 31.9 g/dl (32-36); MEAN PLATELET VOLUME 9.4 fL (7.4-10.4); MONO % 8.6 %; MONO ABS # 0.53 K/uL (0.11-0.59); NEUT % 53.1 %; NEUT ABS # 3.28 K/uL (1.4-6.5); PLATELET COUNT 256 K/uL (130-400); RED CELL DISTRIBUTION WIDTH CV 13.3 % (11.5-14.5); RED CELL DISTRIBUTION WIDTH SD 43.4 fL (36.4-46.3); WHITE BLOOD COUNT 6.17 K/uL (4.8-10.8)
[2017-12-17 13:19] LABS: ALBUMIN 3.6 gm/dl (3.4-5.0); ALT/SGPT 18 U/L (12-78); AST/SGOT 20 U/L (15-37); BLOOD UREA NITROGEN 9 mg/dl (7-18); CALCIUM 8.6 mg/dl (8.5-10.1); CARBON DIOXIDE 29 mmol/L (21-32); CREATININE 0.84 mg/dl (0.60-1.20); GLUCOSE 94 mg/dl (70-99); POTASSIUM 3.9 mmol/L (3.5-5.1); SODIUM 140 mmol/L (136-145)
--- NOTE | 2017-12-17 13:19 | DIAGNOSTIC IMAGING REPORT ---
HEAD CT NONCONTRAST CT DOSE: 669.45 mGycm HISTORY: Frequent falls. EVALUATE ALTERED MENTAL STATUS/WEAKNESS TECHNIQUE: Multiaxial CT images of the head were performed without the use of intravenous contrast. Automated exposure control was utilized for this study. A dose lowering technique was utilized adhering to the principles of ALARA. Comparison: None. Findings: The paranasal sinuses and mastoid air cells are clear. No acute calvarial fractures. Postoperative changes consistent with a left temporal craniectomy with overlying metallic plate. There is no aneurysm clip at the basilar cisterns. 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 There is no mass, hematoma, midline shift, acute infarct. Impression: Postoperative changes as described above. No acute intracranial abnormality. Electronically signed by: Bora Carranaz M.D. 12/17/2017 1:18 PM Dictated Date/Time: 12/17/2017 1:10 PM
[2017-12-17 13:23] LABS: ALKALINE PHOSPHATASE 119 U/L (45-117); TOTAL PROTEIN 7.5 gm/dl (6.4-8.2)
[2017-12-17] MEDS ORDERED: BACL20TA PO (13:40)
[2017-12-17] MEDS ORDERED: OXYC15TA89 PO (13:40)
[2017-12-17] MEDS ORDERED: ACET-749 PO (13:40)
[2017-12-17] MEDS ORDERED: DIPH25CA5 PO (13:40)
--- NOTE | 2017-12-17 13:57 | EMERGENCY ROOM VISIT NOTE ---
History Report prepared by Pat: Evy Javed Under the Supervision of: Dr. Norberto Kahn D.O. First contact with patient: 12:21 Chief Complaint: FALL Stated Complaint: FREQUENT FALLS History of Present Illness The patient is a 57 year old female who presents to the Emergency Room with complaints of worsening frequent falls starting 3-4 days ago. The patient spoke to her PCP and was sent to the ED for her frequent falls. She has been falling without realizing she is falling. She has fallen to the ground while resting on the sofa. She has been getting dizzy. She has had some headache, neck pain, and left shoulder pain from her falls. She uses a cane to get around. 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 Source of History: patient Onset: 3-4 days ago Position: other (generalized) Quality: other (frequent falls) Timing: worsening Associated Symptoms: + headache, + neck pain Note: Pt reports dizziness, left shoulder pain. Review of Systems See HPI for pertinent positives & negatives. A total of 10 systems reviewed and were otherwise negative. Past Medical & Surgical Medical Problems: (1) Cervical stenosis of spinal canal Family History Diabetes mellitus Hypertension Social History Smoking Status: Former Smoker Marital Status: Housing Status: lives with significant other Current/Historical Medications Scheduled Baclofen (Lioresal), 20 MG PO BID Diphenhydramine Hcl (Benadryl), 50 MG PO HS Oxycodone Hcl (Oxycontin), 15 MG PO Q12 Topiramate (Topamax), 50 MG PO BID Trazodone Hcl (Trazodone), 150 MG PO HS Venlafaxine Hcl (Effexor Extended Rel), 150 MG PO QPM Verapamil (Calan), 120 MG PO HS Scheduled PRN Acetaminophen/Codeine (Tylenol W/Codeine #3), 1 TAB PO Q6H PRN for Pain Gabapentin (Neurontin), 800 MG PO TID PRN for Pain Allergies Coded Allergies: Ciprofloxacin (Verified Allergy, Unknown, ITCH AND RASH, 12/17/17) NSAIDs (Verified Adverse Reaction, Intermediate, N/V AND DIARRHEA, ) Penicillins (Verified Adverse Reaction, Mild, N/V, 12/17/17) Metformin (Verified Adverse Reaction, Unknown, NAUSEA VOMITNG DIARRHEA, 06/26) Varenicline (Verified Adverse Reaction, Unknown, BAD NIGHTMARES, 12/17/17) Physical Exam Vital Signs Date Time Temp Pulse Resp B/P (MAP) Pulse Ox O2 Delivery O2 Flow Rate FiO2 12/17/17 14:13 93 16 123/67 99 12/17/17 13:18 78 16 128/81 98 12/17/17 12:48 76 16 130/70 99 Room Air 12/17/17 11:18 36.7 90 20 119/63 97 Room Air Physical Exam VITAL SIGNS: were reviewed as above. GENERAL:Non-toxic in appearance. SKIN: Warm dry and pink. HEAD: Normocephalic and atraumatic. OROPHARYNX: Is clear and moist NECK: Supple without lymphadenopathy or meningismus. LUNGS: clear. HEART: Regular rate and rhythm. ABDOMEN: Soft and nontender. EXTREMITIES: Warm and well perfused. NEUROLOGICALLY: Awake alert and oriented without focal deficit. Cranial nerves 2 -12 are intact. There is no pronator drift. Cerebellar testing is within normal limits. There is no nystagmus. There is no facial droop. Speech is clear. Vision is grossly normal. MUSCULOSKELETAL: Good muscle tone. No evidence of trauma. Medical Decision & Procedures ER Provider Diagnostic Interpretation: X ray results and stated below per my interpretation and radiology interpretation. Radiology results as stated below per my review and radiologist interpretation: CHEST ONE VIEW PORTABLE CLINICAL HISTORY: EVALUATE ALTERED MENTAL STATUS/WEAKNESS COMPARISON STUDY: Chest radiograph September 20, 2010. FINDINGS: Anterior spine fusion is noted. There is no pneumothorax or pleural effusion. There is no consolidation. Linear left basilar opacity suggestive atelectasis. There is pulmonary vascular congestion without overt pulmonary edema. IMPRESSION: Pulmonary vascular congestion. Electronically signed by: James Quigley M.D. 12/17/2017 12:50 PM Dictated Date/Time: 12/17/2017 12:[address] CT DOSE: 669.45 mGycm HISTORY: Frequent falls. EVALUATE ALTERED MENTAL STATUS/WEAKNESS TECHNIQUE: Multiaxial CT images of the head were performed without the use of intravenous contrast. Automated exposure control was utilized for this study. A dose lowering technique was utilized adhering to the principles of ALARA. Comparison: None. Findings: The paranasal sinuses and mastoid air cells are clear. No acute calvarial fractures. Postoperative changes consistent with a left temporal craniectomy with overlying metallic plate. There is no aneurysm clip at the basilar cisterns. 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 There is no mass, hematoma, midline shift, acute infarct. Impression: Postoperative changes as described above. No acute intracranial abnormality. Electronically signed by: Bora Carranza M.D. 12/17/2017 1:18 PM Dictated Date/Time: 12/17/2017 1:10 PM Laboratory Results 12/17/17 12:45 Red Blood Count 4.10, Mean Corpuscular Volume 89.5, Mean Corpuscular Hemoglobin 28.5, Mean Corpuscular Hemoglobin Concent 31.9, Mean Platelet Volume 9.4, Neutrophils (%) (Auto) 53.1, Lymphocytes (%) (Auto) 35.8, Monocytes (%) (Auto) 8.6, Eosinophils (%) (Auto) 1.8, Basophils (%) (Auto) 0.5, Neutrophils # (Auto) 3.28, Lymphocytes # (Auto) 2.21, Monocytes # (Auto) 0.53, Eosinophils # (Auto) 0.11, Basophils # (Auto) 0.03 12/17/17 12:45 Test 12/17/17 12:45 White Blood Count 6.17 K/uL (4.8-10.8) Red Blood Count 4.10 M/uL (4.2-5.4) Hemoglobin 11.7 g/dL (12.0-16.0) Hematocrit 36.7 % (37-47) Mean Corpuscular Volume 89.5 fL (80-100) Mean Corpuscular Hemoglobin 28.5 pg (25-34) Mean Corpuscular Hemoglobin Concent 31.9 g/dl (32-36) Platelet Count 256 K/uL (130-400) Mean Platelet Volume 9.4 fL (7.4-10.4) Neutrophils (%) (Auto) 53.1 % Lymphocytes (%) (Auto) 35.8 % Monocytes (%) (Auto) 8.6 % Eosinophils (%) (Auto) 1.8 % Basophils (%) (Auto) 0.5 % Neutrophils # (Auto) 3.28 K/uL (1.4-6.5) Lymphocytes # (Auto) 2.21 K/uL (1.2-3.4) Monocytes # (Auto) 0.53 K/uL (0.11-0.59) Eosinophils # (Auto) 0.11 K/uL (0-0.5) Basophils # (Auto) 0.03 K/uL (0-0.2) RDW Standard Deviation 43.4 fL (36.4-46.3) RDW Coefficient of Variation 13.3 % (11.5-14.5) Immature Granulocyte % (Auto) 0.2 % Immature Granulocyte # (Auto) 0.01 K/uL (0.00-0.02) Anion Gap 4.0 mmol/L (3-11) Estimated GFR () 89.4 Estimated GFR (Non- 77.2 BUN/Creatinine Ratio 10.5 (10-20) Calcium Level 8.6 mg/dl (8.5-10.1) Total Bilirubin 0.3 mg/dl (0.2-1) Direct Bilirubin < 0.1 mg/dl (0-0.2) Aspartate Amino Transf (AST/SGOT) 20 U/L (15-37) Alanine Aminotransferase (ALT/SGPT) 18 U/L (12-78) Alkaline Phosphatase 119 U/L (45-117) Troponin I < 0.015 ng/ml (0-0.045) Total Protein 7.5 gm/dl (6.4-8.2) Albumin 3.6 gm/dl (3.4-5.0) Laboratory results as stated above per my review. ECG Per My Interpretation Indication: other (fall) Rate (beats per minute): 62 Rhythm: normal sinus Findings: no ectopy, other (no ST elevation) ED Course 1223: Previous medical records were reviewed. The patient was evaluated in room A10. A complete history and physical examination was performed. 1401: On reevaluation, the patient is resting comfortably. I discussed the results and findings with the patient. She verbalized agreement of the treatment plan. She was discharged home. Medical Decision Differentials include: Acute coronary syndrome, myocardial infarction, CVA, TIA , anemia, infection, pneumonia, UTI, pyelonephritis, poor nutrition, dehydration , electrolyte disturbance, and hypoglycemia. This is a 57-year-old female who presents to the ED with a chief complaint of frequent falls. The patient does report a history of falling. She states that she had an aneurysm in 2006 that was repaired. The patient most recently has been falling more over the past few days. She denies any significant trauma or injury related to her falls. She does currently use a cane but does not use a walker. She has not had recent illness. Vital signs are normal. Physical exam and neurologic exam was normal. No focal deficits. Nose abnormal cerebellar testing. Chest x-ray revealed some pulmonary vascular congestion that is not evident on physical exam. CT scan of the brain did not show acute process. CBC and complete metabolic panel as well as troponin were normal. The patient was told the results of the test. I did recommend that she use a walker. She was felt to be stable for discharge. Medication Reconcilliation Current Medication List: was personally reviewed by me Blood Pressure Screening Patient's blood pressure: Normal blood pressure Blood pressure disposition: Did not require urgent referral Impression Primary Impression: Fall Scribe Attestation The scribe's documentation has been prepared under my direction and personally reviewed by me in its entirety. I confirm that the note above accurately reflects all work, treatment, procedures, and medical decision making performed by me. Departure Information Dispostion Home / Self-Care Referrals Lavern Rodriguez M.D. (PCP) Patient Instructions My [facility] Additional Instructions Follow-up with your doctor for further care and evaluation in 1-2 days. Return to the emergency department for worsening or new symptoms or any concerns. You have been examined and treated today on an emergency basis only. This is not a substitute for, or an effort to provide, complete comprehensive medical care. It is impossible to recognize and treat all injuries or illnesses in a single emergency department visit. It is therefore important that you follow up closely with your doctor. Call as soon as possible for an appointment.
[2017-12-17 14:13] VITALS: BP 123/67; PULSE 93; O2SAT 99
== END 2017-12-17 14:13 | disposition home or self-care (01) ==
LOC: C.EDB 11:09 → C.EDA 14:13
DX: R51 Headache (principal); M54.2 Cervicalgia; M25.512 Pain in left shoulder; Z83.3 Family history of diabetes mellitus; Z82.49 Family history of ischemic heart disease and other diseases of the circulatory system; Z79.899 Other long term (current) drug therapy; Z88.0 Allergy status to penicillin; Z88.1 Allergy status to other antibiotic agents; Z88.8 Allergy status to other drugs, medicaments and biological substances

== ENCOUNTER 2025-08-02 06:46 | Inpatient (IN) ==
--- NOTE | 2025-07-29 13:16 | PAT Medication Instructions ---
Medication Instructions Date of Service July 29, 2025 Home Medications Medication Instructions Recorded ondansetron HCl 4 mg tablet 4 mg PO Q8H PRN nausea and 07/30/24 vomiting #30 tabs Portable Supplemental Oxygen and #1 ea 08/13/24 Concentrator buspirone 10 mg tablet 10 mg PO TID #270 tabs 11/10/24 gabapentin 600 mg tablet 600 mg PO TID #90 tabs 03/25/25 inogen machine #1 ea 05/11/25 hydroxyzine HCl 10 mg tablet 20 mg (2 x 10 mg) PO TID PRN 05/31/25 anxiety #180 tabs methocarbamol 500 mg tablet 500 mg PO BID #60 tabs 05/31/25 potassium chloride 10 mEq 10 meq PO DAILY #90 tabs 07/07/25 tablet,extended release (Klor-Con) ezetimibe 10 mg tablet (Zetia) 10 mg PO DAILY #30 tabs 07/12/25 tramadol 50 mg tablet 50 mg PO QID PRN pain #120 tabs 07/23/25 zolpidem 5 mg tablet (Ambien) 5 mg PO HS #30 tabs 07/23/25 aspirin 81 mg tablet 81 mg PO DAILY #100 tabs 07/27/25 clopidogrel 75 mg tablet 75 mg PO DAILY #30 tabs 07/27/25 topiramate 200 mg tablet 200 mg PO BID #60 tabs 07/27/25 diphenhydramine HCl 50 mg capsule (Unisom SleepGels) 50 mg PO HS ondansetron HCl 4 mg tablet 4 mg PO Q8H PRN nausea and vomiting buspirone 10 mg tablet 10 mg PO TID gabapentin 600 mg tablet 600 mg PO TID metoprolol succinate 25 mg tablet,extended release 24 hr 25 mg PO QAM sertraline 100 mg tablet (Zoloft) 150 mg PO HS hydroxyzine HCl 10 mg tablet 20 mg (2 x 10 mg) PO TID PRN anxiety methocarbamol 500 mg tablet 500 mg PO BID potassium chloride 10 mEq tablet,extended release (Klor-Con) 10 meq PO DAILY ezetimibe 10 mg tablet (Zetia) 10 mg PO DAILY tramadol 50 mg tablet 50 mg PO QID PRN pain zolpidem 5 mg tablet (Ambien) 5 mg PO HS aspirin 81 mg tablet 81 mg PO DAILY clopidogrel 75 mg tablet 75 mg PO DAILY topiramate 200 mg tablet 200 mg PO BID clobetasol 0.05 % topical cream 1 applic topical DAILY PRN Rash ASK your prescriber and surgeon aspirin 81 mg tablet 81 mg PO DAILY clopidogrel 75 mg tablet 75 mg PO DAILY STOP taking 24 hours before surgery clobetasol 0.05 % topical cream 1 applic topical DAILY PRN Rash DO NOT take the morning of surgery hydroxyzine HCl 10 mg tablet 20 mg (2 x 10 mg) PO TID PRN anxiety potassium chloride 10 mEq tablet,extended release (Klor-Con) 10 meq PO DAILY Take morning of surgery With a small sip of water, OTHERWISE NOTHING TO EAT OR DRINK AFTER MIDNIGHT: ondansetron HCl 4 mg tablet 4 mg PO Q8H PRN nausea and vomiting (if needed) buspirone 10 mg tablet 10 mg PO TID gabapentin 600 mg tablet 600 mg PO TID metoprolol succinate 25 mg tablet,extended release 24 hr 25 mg PO QAM methocarbamol 500 mg tablet 500 mg PO BID ezetimibe 10 mg tablet (Zetia) 10 mg PO DAILY tramadol 50 mg tablet 50 mg PO QID PRN pain (if needed) topiramate 200 mg tablet 200 mg PO BID Take evening before surgery diphenhydramine HCl 50 mg capsule (Unisom SleepGels) 50 mg PO HS ondansetron HCl 4 mg tablet 4 mg PO Q8H PRN nausea and vomiting (if needed) buspirone 10 mg tablet 10 mg PO TID gabapentin 600 mg tablet 600 mg PO TID sertraline 100 mg tablet (Zoloft) 150 mg PO HS hydroxyzine HCl 10 mg tablet 20 mg (2 x 10 mg) PO TID PRN anxiety (if needed) methocarbamol 500 mg tablet 500 mg PO BID tramadol 50 mg tablet 50 mg PO QID PRN pain (if needed) zolpidem 5 mg tablet (Ambien) 5 mg PO HS topiramate 200 mg tablet 200 mg PO BID Other Notes If you have any questions please call us at [phone] or [phone] or or [phone]
--- NOTE | 2025-07-30 08:34 | Anesthesiology Consultation ---
Date of Service July 30, 2025 Assessment & Plan (1) Encounter for pre-operative examination: - Check BSG DOS - Infectious disease screening: Per assessment on 07/29/25- No known recent infectious disease contacts or current infectious disease symptoms. - Cardiology office visit 04/23/25 [place]: "...dual-chamber permanent pacemaker: Normal Device function and longevity. No arrhythmias recorded. Mostly atrial pacing. Intact conduction. Syncope: She continues to have fairly frequent "blackout" spells. Not associated with changes in position. Unchanged in character over many years...extensive cardiac monitoring without any evidence of arrhythmia in the past. These are decidedly noncardiac. Nonischemic cardiomyopathy: This appears resolved. No current symptoms suggestive of decompensation...more aggressive therapy previously but had some side effects and issues with expense. At this point will continue her on beta-blockade. Carotid stenosis: Most recent evaluation suggest severe stenosis of the left internal carotid artery...refer her to vascular surgery for an opinion on intervention..." - Neurology visit 07/27/25 [place]: "65-year-old female with a history of tobacco use disorder, seizure disorder, stable with topiramate, has not tolerated trials of other seizure medications including lamotrigine and Depakote. She has chronic cerebrovascular disease and a chronic left basal ganglia lacunar infarct. Found to have a 90% stenosis of the proximal left internal carotid artery. Patient informs me that she has had a few episodes of painless monocular vision loss affecting the left eye, likely amaurosis fugax. She was apparently scheduled for carotid surgery with Dr. Maurer. However, she informs me that this surgery was canceled due to low potassium levels. Her hypokalemia has subsequently been corrected, she is taking supplemental potassium. She informs me that she has seen a business administrator at [facility] regarding hypokalemia. Looks like she has had episodes of hypokalemia for many years. It is possible that her topiramate could be contributing to her mild intermittent hypokalemia as this medication induces a mild metabolic acidosis. However, this medication has been helpful and well-tolerated, she prefers to remain on topiramate, rather than switching to a different antiseizure medication. Again, she has tried lamotrigine and Depakote previously. At this point, she would rather obtain an opinion with a different vascular surgeon regarding her severe carotid stenosis, I have referred her again to Dr. Bowen. If her hypokalemia remains a persistent or becomes a progressive issue, we could reduce her topiramate dosage and/or switch to an alternative antiseizure medication, possibly carbamazepine or oxcarba zepine. Of course, these medications are sometimes associated with hyponatremia. I did give her a prescription for clopidogrel and aspirin, I would like her to take both of these medications together, dual antiplatelet therapy, at least until her carotid stenosis is addressed." - [employer] PPM: [employer] rep request was placed 07/30/25. Received e-mail from Pineda Fall with [employer] that "Unfortunately, we can't cover this case on Saturday. There is no rep available.. I reviewed the last interrogation for this patient and the use of a magnet will be completely appropriate." > Reviewed with Dr. Mcgee; he feels that patient okay to remain as scheduled without [employer] rep perioperatively (given nature of upcoming surgery, pacer rep indicating that they are unable to coordinate and feel magnet use would be appropriate). Dr. Bowen made aware and indicates okay to proceed from his perspective as well (Per Suri Colindres with surgeon's office). - Acceptable risk for given surgery pending evaluation DOS. Chart Review Chart Review: Patient seen in Pre Admission Testing Teaching & Discussion Pre-Anesthesia Teaching/Discussion Notes: Instructed NPO after midnight before surgery,except medications with 15 cc of water. Medication instructions provided according to the PAT guidelines. History Surgery Operation Date: 08/02/25 08:00 Proposed Procedures p Left Transcarotid Artery Revascularization - Roland Bowen MD Height/Weight Height: 5 ft 7 in Weight: 47.5 kg Allergies Allergy/AdvReac Type Severity Reaction Status Date / Time cyclobenzaprine Allergy Severe Burning Verified 07/30/25 08:26 [From Flexeril] tongue, nightmares, itching empagliflozin Allergy Severe "My whole Verified 07/30/25 08:26 [From Jardiance] face sucked in" ciprofloxacin [Cipro] Allergy Mild Rash, Verified 07/30/25 08:26 itching morphine Allergy Mild Itching Verified 07/30/25 08:26 divalproex sodium AdvReac Severe Gastrointestinal Verified 07/29/25 11:40 [From Depakote] Upset metformin AdvReac Severe Nausea, Verified 07/30/25 08:26 vomiting, diarrhea Penicillins AdvReac Severe Rash Verified 07/29/25 11:40 quetiapine [From Seroquel] AdvReac Severe Metal taste Verified 07/30/25 08:26 trazodone AdvReac Severe Gastrointestinal Verified 07/29/25 11:40 Upset varenicline AdvReac Severe Bad Verified 07/30/25 08:26 nightmares NSAIDS (Non-Steroidal AdvReac Intermediate Nausea, Verified 07/30/25 08:26 Anti-Inflamma vomiting, diarrhea Medications Home Medications Medication Instructions Recorded Confirmed Last Taken diphenhydramine HCl 50 mg capsule 50 mg PO HS 09/23/20 07/29/25 Unknown ([employer] SleepGels) ondansetron HCl 4 mg tablet 4 mg PO Q8H PRN nausea and 07/30/24 07/29/25 Unknown vomiting #30 tabs Portable Supplemental Oxygen and #1 ea 08/13/24 07/27/25 Unknown Concentrator buspirone 10 mg tablet 10 mg PO TID #270 tabs 11/10/24 07/29/25 06/09/25 19:30 metoprolol succinate 25 mg 25 mg PO QAM 04/29/25 07/29/25 06/09/25 10:00 tablet,extended release 24 hr sertraline 100 mg tablet (Zoloft) 150 mg PO HS 04/29/25 07/29/25 06/09/25 19:30 inogen machine #1 ea 05/11/25 07/27/25 Unknown hydroxyzine HCl 10 mg tablet 20 mg (2 x 10 mg) PO TID PRN 05/31/25 07/29/25 Unknown anxiety #180 tabs methocarbamol 500 mg tablet 500 mg PO BID #60 tabs 05/31/25 07/29/25 06/09/25 19:30 potassium chloride 10 mEq 10 meq PO DAILY #90 tabs 07/07/25 07/29/25 Unknown tablet,extended release (Klor-Con) ezetimibe 10 mg tablet (Zetia) 10 mg PO DAILY #30 tabs 07/12/25 07/29/25 Unknown tramadol 50 mg tablet 50 mg PO QID PRN pain #120 tabs 07/23/25 07/29/25 Unknown zolpidem 5 mg tablet (Ambien) 5 mg PO HS #30 tabs 07/23/25 07/29/25 Unknown aspirin 81 mg tablet 81 mg PO DAILY #100 tabs 07/27/25 07/29/25 Unknown clopidogrel 75 mg tablet 75 mg PO DAILY #30 tabs 07/27/25 07/29/25 Unknown topiramate 200 mg tablet 200 mg PO BID #60 tabs 07/27/25 07/29/25 Unknown clobetasol 0.05 % topical cream 1 applic topical DAILY PRN Rash 07/29/25 07/29/25 Unknown gabapentin 600 mg tablet 600 mg PO TID PRN Pain 07/30/25 07/29/25 Unknown Past Medical History Medical History Amaurosis fugax of left eye Anxiety Arthritis Cardiomyopathy Carotid stenosis Cervical spinal stenosis Chronic kidney disease (CKD) Stage 3 Chronic pain syndrome COPD (chronic obstructive pulmonary disease) Hx O2 1L NC PRN (has not used in months) Degenerative disc disease Depression History of anemia History of blood transfusion 1989 perioperative, ~7 months ago d/t anemia History of stroke x2 in 2005 (prior to my brain surgery) Difficulty with short term memory and right sided weakness (refuses to use cane or walker) Hx MRSA infection Toe, Remote hx "long time ago"- treated in [place] Hx of cardiac pacemaker Implanted 2018, [employer] Follows with [facility] cardio, checked Hx of concussion Hx of diabetes mellitus Hx need for insulin use ("no longer needs medications due to weight loss") Hx of seizure disorder Initial seizure 2019 Follows with [facility] Neurology Hyperlipidemia Hyperparathyroidism Hypertension Pulmonary nodules Monitored Syncope Hx periodic convulsive syncope per [facility] neuro records Urge incontinence Urinary urgency Weight loss, unintentional Early 2023 weighed 170lbs Exercise / Class Metabolic Activity III < 4 Walking/Shop/Light housework (one FS: No CP, + SOB) Past Family History Family History Mother Clotting disorder Cancer bladder Father Prostate cancer Diabetes Cerebral aneurysm Heart disease Cancer Hypertension Stroke Sister Diabetes Dementia Kidney disease COPD (chronic obstructive pulmonary disease) Parkinson disease Brother Diabetes Lung cancer Grandmother Diabetes Cancer Family/Other Breast cancer Grandmother (Maternal) Myocardial infarction Other No family history of adverse response to anesthesia Denies family history of Ovarian cancer Colorectal cancer Past Surgical History Surgical History H/O breast reconstruction H/O cerebral aneurysm repair [place] [facility] H/O cervical discectomy Unsure of levels x2 surgeries (~5 years ago) History of back surgery Lumbar surgeries x 5 total Lumbar fusions with hardware (L1-S1), Currently has broken carlotta (encased) History of bronchoscopy Remote history - benign biopsy History of cardiac cath (2022) 4 total, most recent 2022 No stents History of colonoscopy History of esophagogastroduodenoscopy (EGD) History of hysterectomy with bilateral oophorectomy History of left mastectomy Fibrocystic changes removed ("did not have breast cancer") No limb restrictions per patient History of liver biopsy Remote history - benign findings History of open reduction and internal fixation (ORIF) procedure B/L ankles fracture repairs (~10 years ago) Hx laparoscopic cholecystectomy Hx of arthroscopy of shoulder R/L rotator cuff repairs Status post placement of implantable loop recorder 2015, subsequently removed Past Anesthesia History No Hx of Anesthesia Complications and No Family Hx of Anesthesia Complications History of PONV No Hx of PONV and No Hx of Motion Sickness Social History Smoking Status: Current every day smoker Smoking cigarettes per day: < 1/2 PPD (advised) Do You Dip or Chew Tobacco: No Hx Alcohol Use: No substance use type: marijuana (Medical THC capsules at - has own medical THC card) Last Used Substance Other:: 04/28/25 Review of Systems Occasional palpitations. Patient denies chest pain, shortness of breath, fever, chills, cough, wheezing. Physical Exam Vital Signs BP 100/65 P 91 TEMP 99.1 SP02 97%RA RESP 16 Physical Full cervical extension range of motion. Full TMJ range of motion. TMD 3 finger breaths Mallampati Score II Dentition: edentulous, upper plate Lungs: clear throughout to auscultation Cardiac: regular rate and rhythm, no murmurs noted Spine: normal Extremities: no LE edema Lab Results Anesthesia Preop Results Results Anesthesia Widget: WBC 7.63 K/ul (4.8-10.8) 07/30/25 Hgb 12.2 g/dL (12.0-16.0) 07/30/25 Hct 36.9 % (37.0-47.0) L 07/30/25 Plt 256 K/uL (130-400) 07/30/25 Na 139 mmol/L (136-145) 07/22/25 K 3.9 mmol/L (3.5-5.1) 07/22/25 Cl 108 mmol/L (98-107) H 07/22/25 CO2 24 mmol/L (21-32) 07/22/25 BUN 18 mg/dl (6-23) 07/22/25 Creat 1.18 mg/dl (0.6-1.2) 07/22/25 Glucose Level 152 mg/dl (70-99(Fasting)) H 07/22/25 PT 10.7 Seconds (9.0-12.0) 07/30/25 PTT 25 Seconds (21-31) 07/30/25 INR 1.0 (0.9-1.1) 07/30/25 HA1c 5.4 % (4.5-5.6) 07/07/25 Blood Type O Positive 07/30/25 Antibody Screen NEGATIVE 07/30/25 Testing Electrocardiogram Date: 01/14/25 Atrial paced rhythm, rate 69 bpm Incomplete RBBB Septal infarct, age undetermined When compared with 12/24/22 EKG, Electronic atrial pacemaker has replaced elec tronic ventricular pacemaker per size painter comparison. Chest X-Ray Date: 12/18/24 No active disease. Echocardiogram Date: 08/04/24 EF 50-55% Normal LV wall motion No diastolic dysfunction Mild tricuspid regurgitation Cardiac Catheterization Date: 12/19/22 LMCA: normal LAD: non obstructive luminal irregularities LCx: normal RCA: non obstructive luminal irregularities Mild to moderate intimal coronary disease Nonischemic cardiomyopathy with HFrEF Other Testing Pacemaker report Date: 07/03/25 Mode AAIR <=> DDDR. Battery longevity 7 years 9 months. AP 56.12%. RVP 0.03%. Zero % AT/AF burden. "Device appears to be functioning appropriately." Head and neck CTA Date: 04/14/25 Short segment severe (90%) stenosis of the proximal left internal carotid artery. Moderate plaque within the proximal right internal carotid artery without stenosis. Mild stenosis at the origin of the left vertebral artery. Dominant left vertebral artery. Diminutive right vertebral artery, likely on a congenital basis. 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 Left temporal craniotomy with encephalomalacia again noted within the left temporal lobe. Brain MRI Date: 04/14/25 1. No acute intracranial findings. 2. No intracranial mass or pathologic enhancement. 3. Stable findings following left temporal craniotomy. No change in encephalomalacia within the anterior left temporal lobe. 4. No change in old left basal ganglia infarct. 5. Mild progression of small vessel disease. Chest CT Date: 01/18/25 No acute findings Moderate COPD Small pulmonary nodules are unchanged. Would consider return to annual lung cancer screening exams
[2025-08-02] MEDS ORDERED: PROPOFOL IV EMULSION 10 MG/ML 20 ML VIAL IV ONE (07:07)
[2025-08-02] MEDS ORDERED: ROCURONIUM BROMIDE 10 MG/ML 5 ML VIAL IV ONE (07:07)
[2025-08-02] MEDS ORDERED: ONDANSETRON INJ 2 MG/ML 2 ML VIAL ONE (07:07)
[2025-08-02] MEDS ORDERED: DEXAMETHASONE SOD INJ 4 MG/ML VIAL ONE (07:07)
[2025-08-02] MEDS ORDERED: LIDOCAINE 2% 2 ML VIAL/AMP(20MG/ML) INFIL ONE (07:07)
[2025-08-02] MEDS ORDERED: MIDAZOLAM HCL 1 MG/ML 2ML VIAL ONE (07:08)
[2025-08-02] MEDS ORDERED: PHENYLEPHRINE HCL 25 MG/250 ML NSS IV ONE (07:19)
[2025-08-02] MEDS: ASPIRIN 81 MG CHEW PO ONE (07:29)
[2025-08-02] MEDS: LACTATED RINGER'S 1,000 ML IV SCH ×2 (07:29→11:26)
[2025-08-02] MEDS ORDERED: GLYCOPYRROLATE 0.2 MG/ML VIAL ONE ×2 (07:30→08:10)
--- NOTE | 2025-08-02 07:49 | History & Physical Report ---
Date of Service August 02, 2025 History of Present Illness Primary Care Provider: Evy Mccallum DO Chief Complaint rm#1 amaurosis fugax started which started about 3 months ago but 2 weeks ago area of amaurosis has increased and is happening more frequently. Weakness and hand shaking left hand. Restarted smoking in December. She has now cut back to less than 0.5 ppd. Reason for Consultation Symptomatic left internal carotid artery stenosis History of Present Illness I had the pleasure of seeing aMrzena for evaluation of her left internal carotid artery stenosis. As you know she is a 65-year-old female whose had multiple bouts of amaurosis fugax of the left eye. The worst 1 being well 2 weeks prior to this at which point she went completely blind in her left eye at [facility] which lasted for about 15 to 20 minutes and then totally resolved. Since then she has had multiple involvement of the smaller sections of her eye with small areas of total blindness that come and go. She denies any focal deficits of weakness of her arms or legs, facial droop, or slurred speech during these episodes. She did have a CT angiogram done in the past which showed greater 90% narrowing of her left internal carotid artery. She was scheduled for endarterectomy in the past but had hypokalemia and the surgery was canceled. Since then she has not heard anything about rescheduling her surgery. Referred here for second opinion. Patient here really you should hear October with high-pitched whistle all yeah Review of Systems 10 systems are reviewed. Only positive findings are occasional palpitations and the history of present illness. Physical Exam Vitals & Measurements HR: 68 (Monitored) BP: 124/80 SpO2: 99% WT: 46.5 kg WT: 46.500 kg (Dosing) Input and Output - Last 24 hours (Last 8 hours) No I/O Data Found: On physical exam she is awake alert and oriented x 3. Her blood pressure is 130/82 in the left and 124/80 on the right. Her radials and carotids are +2 bilaterally. There is a very loud high-pitched left carotid bruit. Lungs are clear heart irregular rhythm. Abdominal is benign. No abnormal dilatation is appreciated. Femorals and pedal pulses are +2 bilaterally. Neurologic exam grossly intact motor and sensory function. Diagnostic Results CT angiogram showed 90% narrowing of her left internal carotid artery. Assessment/Plan 1. Amaurosis fugax of left eye 2. Carotid stenosis, bilateral We did agree with the recommendations from her first surgeon of intervention for her carotid artery. At this point she would like it to be done by our group. We went over endarterectomy versus TCAR along with the risks and options both procedures. She would much rather have a TCAR if she was a candidate. Looking at the CT scan she is a good candidate for a TCAR approach. She understood the risks options benefits which are documented consent form. Being that she is fairly symptomatic we will do Plavix testing at this week and have her scheduled for left TCAR this coming Saturday. Thank you very much for letting us participate in the care of this patient. Sincerely, Johnny Bowen MD Attestation I have personally spent ___45__ minutes performing [id number] and [id number] activities on this date of service. Activities Include: _x_ review of the medical record _x_ obtaining a history __x physical exam/evaluation __ review labs __x review radiology reports _x_ counseling/educating patient/family/caregiver __ discussion/referral to other healthcare professional _x_ documenting care in the medical record __x independent interpretation of results cta at [facility] __ communication of results to patient/family/caregiver __ coordination of care Problem List/Past Medical History Ongoing Abdominal wall mass Amaurosis fugax of left eye Aneurysm Arthritis Cardiomyopathy Cervical spinal stenosis Cervicalgia Chronic kidney disease, stage 3a Chronic obstructive pulmonary disease (COPD) Chronic pain syndrome Concussion DDD (degenerative disc disease), cervical Dizziness Dyspnea Falls Gross hematuria HEADACHE Headache History of anemia History of back problems History of cardiac pacemaker History of seizure disorder History of stroke Hyperlipidemia Hyperparathyroidism HYPERTENSION Left carotid artery stenosis Lichen sclerosus of female genitalia On home O2 Pleuritic pain Pulmonary nodules Syncope T2DM (type 2 diabetes mellitus) Tobacco user Urge incontinence Urinary urgency Vertigo Vitamin D deficiency Weight loss Weight monitoring Procedure/Surgical History Discectomy Cholecystectomy Breast reconstruction Brain aneurysm Back fusion Hysterectomy Medications Home aspirin(aspirin 81 mg oral delayed release tablet), 81 mg= 1 tab, PO, Daily atorvastatin(Lipitor 20 mg oral tablet), 20 mg= 1 tab, PO, Daily busPIRone(busPIRone 10 mg oral tablet), 10 mg= 1 tab, PO, tid clobetasol topical(clobetasol 0.05% topical cream), 1 appl, topical, Daily clopidogrel(clopidogrel 75 mg oral tablet), 75 mg= 1 tab, PO, Daily ezetimibe(ezetimibe 10 mg oral tablet) gabapentin(gabapentin 600 mg oral tablet) hydrOXYzine(hydrOXYzine hydrochloride 10 mg oral tablet), 20 mg= 2 tab, PO, tid, PRN methocarbamol(methocarbamol 500 mg oral tablet) metoprolol(Metoprolol Succinate ER 25 mg oral tablet, extended release) ondansetron(ondansetron 4 mg oral tablet), 4 mg= 1 tab, PO, tid, PRN potassium chloride(Potassium Chloride (Eqv-K-Tab) 10 mEq oral tablet, extended release) sertraline(Zoloft 100 mg oral tablet), 150 mg= 1.5 tab, PO, Daily topiramate(Topamax 100 mg oral tablet), 200 mg= 2 tab, PO, bid traMADol(traMADol 50 mg oral tablet), 50 mg= 1 tab, PO, q4h, PRN zolpidem(zolpidem 5 mg oral tablet), 5 mg= 1 tab, PO, qhs, PRN Allergies Cipro (Mild) Chantix hives QUEtiapine Metallic taste cyclobenzaprine Burning tongue, Nightmares, Itching divalproex sodium Gastrointestinal upset empagliflozin whole face sucked in metFORMIN Vomiting, Diarrhea morphine itching nonsteroidal antiinflammatory agent penicillin traZODone Gastrointestinal upset Social History Smoking Status Current every day light smoker Tobacco Use:Current every day smoker Type:Cigarettes Tobacco use per day:10 Number of years:53 Started at age:12Years Family History Aneurysm: Father. Bladder cancer: Mother. Diabetes: Father. Seizure: PGM. Health Status Family Member(s) Signature Line Electronic Signature on File Roland Bowen MD Author Signature Dt/Tm: 07/29/2025 10:00 AM Cooker Meal Kumar [facility] [address], [address] [place] [address] S Result Type: .Outpt Ltr Date of Service: July 29, 2025 08:35 EST Authorization Status: Final Subject: Consult Note Author or Import Date: MD Andrés, Roland Adams on July 29, 2025 10:00 EST Verified By: MD Bowen Eugene J on July 29, 2025 10:00 EST Encounter info: [id number], [place] [address], Clinic, 07/29/2025 - 07/29/2025 Allergies Allergy/AdvReac Type Severity Reaction Status Date / Time cyclobenzaprine Allergy Severe Burning Verified 08/02/25 06:39 [From Flexeril] tongue, nightmares, itching empagliflozin Allergy Severe "My whole Verified 08/02/25 06:39 [From Jardiance] face sucked in" ciprofloxacin [Cipro] Allergy Mild Rash, Verified 08/02/25 06:39 itching morphine Allergy Mild Itching Verified 08/02/25 06:39 divalproex sodium AdvReac Severe Gastrointestinal Verified 08/02/25 06:39 [From Depakote] Upset metformin AdvReac Severe Nausea, Verified 08/02/25 06:39 vomiting, diarrhea Penicillins AdvReac Severe Rash Verified 08/02/25 06:39 quetiapine [From Seroquel] AdvReac Severe Metal taste Verified 08/02/25 06:39 trazodone AdvReac Severe Gastrointestinal Verified 08/02/25 06:39 Upset varenicline AdvReac Severe Bad Verified 08/02/25 06:39 nightmares NSAIDS (Non-Steroidal AdvReac Intermediate Nausea, Verified 08/02/25 06:39 Anti-Inflamma vomiting, diarrhea Home Medications Medication Instructions Recorded Confirmed Type diphenhydramine HCl 50 mg capsule 50 mg PO HS PRN Sleep 09/23/20 08/02/25 History ([employer]) ondansetron HCl 4 mg tablet 4 mg PO Q8H PRN nausea and 07/30/24 08/02/25 Rx vomiting #30 tabs Portable Supplemental Oxygen and #1 ea 08/13/24 07/27/25 Rx Concentrator buspirone 10 mg tablet 10 mg PO TID #270 tabs 11/10/24 08/02/25 Rx metoprolol succinate 25 mg 25 mg PO QAM 04/29/25 08/02/25 History tablet,extended release 24 hr sertraline 100 mg tablet (Zoloft) 150 mg PO HS 04/29/25 08/02/25 History inogen machine #1 ea 05/11/25 07/27/25 Rx hydroxyzine HCl 10 mg tablet 20 mg (2 x 10 mg) PO TID PRN 05/31/25 08/02/25 Rx anxiety #180 tabs methocarbamol 500 mg tablet 500 mg PO BID #60 tabs 05/31/25 08/02/25 Rx potassium chloride 10 mEq 10 meq PO DAILY #90 tabs 07/07/25 08/02/25 Rx tablet,extended release (Klor-Con) ezetimibe 10 mg tablet (Zetia) 10 mg PO DAILY #30 tabs 07/12/25 08/02/25 Rx tramadol 50 mg tablet 50 mg PO QID PRN pain #120 tabs 07/23/25 08/02/25 Rx zolpidem 5 mg tablet (Ambien) 5 mg PO HS #30 tabs 07/23/25 08/02/25 Rx aspirin 81 mg tablet 81 mg PO DAILY #100 tabs 07/27/25 08/02/25 Rx clopidogrel 75 mg tablet 75 mg PO DAILY #30 tabs 07/27/25 08/02/25 Rx topiramate 200 mg tablet 200 mg PO BID #60 tabs 07/27/25 08/02/25 Rx clobetasol 0.05 % topical cream 1 applic topical DAILY PRN Rash 07/29/25 08/02/25 History gabapentin 600 mg tablet 600 mg PO TID PRN Pain 07/30/25 08/02/25 History Past Med/Surg History Problem List Amaurosis fugax of left eye Encounter for pre-operative examination Left carotid stenosis Lichen sclerosus of female genitalia Vitamin B12 deficiency Cervicalgia Hyperparathyroidism Cardiomyopathy Weight loss Chronic kidney disease, stage 3a Vitamin D deficiency Arthritis Abdominal wall mass Urge incontinence Urinary urgency CKD (chronic kidney disease) Diabetes mellitus type 2, controlled Seizure disorder History of permanent cardiac pacemaker placement Anxiety (Chronic) Carotid stenosis, asymptomatic (Chronic) Anterior communicating artery aneurysm (Chronic) Depression (Chronic) HLD (hyperlipidemia) (Chronic) Chronic pain syndrome (Chronic) COPD (chronic obstructive pulmonary disease) (Chronic) Cervical stenosis of spinal canal (Chronic) Medical History Amaurosis fugax of left eye Anxiety Arthritis Cardiomyopathy Carotid stenosis Cervical spinal stenosis Chronic kidney disease (CKD) Stage 3 Chronic pain syndrome COPD (chronic obstructive pulmonary disease) Hx O2 1L NC PRN (has not used in months) Degenerative disc disease Depression History of anemia History of blood transfusion 1989 perioperative, ~7 months ago d/t anemia History of stroke x2 in 2005 (prior to my brain surgery) Difficulty with short term memory and right sided weakness (refuses to use cane or walker) Hx MRSA infection Toe, Remote hx "long time ago"- treated in [place] Hx of cardiac pacemaker Implanted 2018, [employer] Follow[facility], checked Hx of concussion Hx of diabetes mellitus Hx need for insulin use ("no longer needs medications due to weight loss") Hx of seizure disorder Initial seizure 2019 Follows with [facility] Neurology Hyperlipidemia Hyperparathyroidism Hypertension Pulmonary nodules Monitored Syncope Hx periodic convulsive syncope per [facility] neuro records Urge incontinence Urinary urgency Weight loss, unintentional Early 2023 weighed 170lbs Surgical History H/O breast reconstruction H/O cerebral aneurysm repair (2006) [facility] H/O cervical discectomy Unsure of levels x2 surgeries (~5 years ago) History of back surgery Lumbar surgeries x 5 total Lumbar fusions with hardware (L1-S1), Currently has broken carlotta (encased) History of bronchoscopy Remote history - benign biopsy History of cardiac cath (2022) 4 total, most recent 2022 No stents History of colonoscopy History of esophagogastroduodenoscopy (EGD) History of hysterectomy with bilateral oophorectomy History of left mastectomy Fibrocystic changes removed ("did not have breast cancer") No limb restrictions per patient History of liver biopsy Remote history - benign findings History of open reduction and internal fixation (ORIF) procedure B/L ankles fracture repairs (~10 years ago) Hx laparoscopic cholecystectomy Hx of arthroscopy of shoulder R/L rotator cuff repairs Status post placement of implantable loop recorder 2015, subsequently removed Family History Mother Clotting disorder Cancer bladder Father Prostate cancer Diabetes Cerebral aneurysm Heart disease Cancer Hypertension Stroke Sister Diabetes Dementia Kidney disease COPD (chronic obstructive pulmonary disease) Parkinson disease Brother Diabetes Lung cancer Grandmother Diabetes Cancer Family/Other Breast cancer Grandmother (Maternal) Myocardial infarction Other No family history of adverse response to anesthesia Denies family history of Ovarian cancer Colorectal cancer Social History Smoking Status: Current every day smoker Tobacco Type: Cigarettes Age Started Using Tobacco: 12; packs per day: 0.5; Cigarettes Per Day: < 1/2 PPD (advised); Second Hand Exposure: No; Do You Dip or Chew Tobacco: No; Tobacco Cessation Education Requested by Patient: No Hx Alcohol Use: No Preferred Language: Eritrean Communication Ability: Effective Visual Impairment: No Limitations Hearing Ability: Normal Director [employer] Required: No Beliefs That Will Affect Care: None marital status: Current Living Situation: Spouse current occupational status: disabled How many Children do You have: 2 Other Information That Helps Us Care for You: No Feels Safe at Home: Yes Safety Concerns: Feels Safe At This Time Childhood Exposure to Second-Hand Smoke: Yes Diet: regular caffeine: Yes during the past year weight has: decreased > 10 lbs Dental Care, Regularly: No Physical Activity Frequency: Does not Exercise Seatbelt Use: always Sunscreen Use: No Do you think of yourself as: straight/heterosexual Gender Identity: Female Assistive Devices: Denture - Upper, Denture - Lower and Glasses Results & Data Vital Signs (Past 12 Hours) Vital Signs Temp Pulse Resp BP BP Pulse Ox O2 Del Method 08/02/25 06:53 Room Air, Nasal Cannula 08/02/25 06:52 37.1 C 69 18 121/63 109/62 99 Room Air
--- NOTE | 2025-08-02 07:49 | History & Physical Bridge Note ---
Date of Service August 02, 2025 History & Physical Bridge Note I have examined the patient, reviewed the History & Physical and in the interval since the performance of the History & Physical I have noted the following changes of clinical significance: no changes noted
[2025-08-02] MEDS ORDERED: HEPARIN SOD (PORCINE) 1000 UNIT/ML ONE (08:43)
[2025-08-02] MEDS ORDERED: PROMETHAZINE HCL 6.25 MG in SODIUM CHLORIDE 0.9% 50 ML IV PRN (08:54)
[2025-08-02] MEDS ORDERED: ATROPINE SULFATE 0.1 MG/ML 10ML SYR IV PRN (08:54)
[2025-08-02] MEDS ORDERED: FLUMAZENIL 0.1 MG/1 ML 10 ML VIAL IV PRN (08:54)
[2025-08-02] MEDS ORDERED: NALOXONE HCL 0.4 MG/1 ML VIAL/CARP IV PRN (08:54)
[2025-08-02] MEDS ORDERED: PHENYLEPHRINE 100MCG/ML 5ML SYR ONE (09:08)
[2025-08-02] MEDS ORDERED: ePHEDrine sulfate 50 MG/5 ML SYR ONE (09:08)
[2025-08-02] MEDS: VISIPAQUE IV ONE (09:14)
[2025-08-02] MEDS ORDERED: PROTAMINE SULFATE 10 MG/ML 5 ML VIAL IV ONE (09:15)
[2025-08-02] MEDS ORDERED: SUGAMMADEX SODIUM 200 MG/2 ML VIAL IV ONE (09:20)
[2025-08-02] MEDS: GELATIN SPONGE SZ 100 ONE (09:21)
[2025-08-02] MEDS: THROMBIN FOR SOLN 20000 UNIT KIT ONE (09:21)
[2025-08-02] MEDS: BUPIVACAINE/EPINEPHRINE 0.5% MPF 1:200,000 30 ML VIAL ONE (09:34)
[2025-08-02] MEDS: ceFAZolin 330 MG/ML 1 GM VIAL ONE (09:35)
--- NOTE | 2025-08-02 09:45 | Procedure Note ---
Angiogram Post Procedure Fluoroscopy Time (minutes): 2.8 Radiation (mGy): 12.45 Contrast: 15 Post Operative Report Pre & Post Diagnosis Operation Date: 08/02/25 08:00 Pre-Op Diagnosis: Symptomatic Left Internal Carotid Artery Stenosis Post-Op Diagnosis: Symptomatic Left Internal Carotid Artery Stenosis I identified the patient and participated in the time-out.: Yes Procedure Operation Date: 08/02/25 08:00 Actual Procedures p Left Transcarotid Artery Revascularization(Left), Ultrasound localization of right common femoral vein- Roland Bowen MD Surgeon Roland Bowen MD Talent Management Specialist [place],PAC Estimated Blood Loss 20 Findings Consistent with Post-Op Diagnosis Specimens none Anesthesia Type General Complications none Disposition Accompanied Patient To Recovery: No Disposition: Recovery Room Indications This is a 65-year-old female was found to have severe left internal carotid artery stenosis with symptoms of amaurosis fugax most recently occurring 2-3 times a week which started approximately 2 months ago. Intervention is recommended. We went over the risks of endarterectomy versus TCAR and she elected to go ahead with a TCAR approach. I have discussed the risks options and benefits of the procedure with the patient. The patient understands the risks options and benefits and agrees to the procedure. Description of Procedure The patient was taken to the operating room and placed in supine position. After general anesthesia was accomplished the groins and left side of the neck and chest were prepped and draped in a sterile manner. Timeout was performed and the patient was identified. A transverse incision was made just above the clavicle between the heads of the sternocleidomastoid. This is carried down to where the common carotid artery was identified. It was isolated. It was slung with umbilical tape. Next the U stitch was placed in the common carotid artery with a 5-0 Prolene suture. Patient was given 5000 heparin at that time. Ultrasound was then used to localize the left common femoral vein. The vein was patent and compressed easily. Under ultrasound guidance the right common femoral vein was punctured and the venous sheath was inserted. This was aspirated and flushed with heparinized saline. ACT at that time was 262. Using micropuncture technique the common carotid artery was punctured. The micro sheath was inserted to 3 cm. Injection was then done showing the bifurcation. There was a significant lesion seen at the origin of the internal carotid artery on the left side. We then inserted the J-wire left and short of the lesion. The micro sheath was removed and the TCAR sheath was inserted. Once it was in place and held against the artery it was sutured to the chest wall and the incision edge. We then flushed the tubing appropriately. The venous return to was clamped onto the TCAR sheath. It was flushed through and then attached to the venous inflow sheath in the left groin. Sheath was checked for flow. The saline cleared nicely. The common carotid artery was then clamped. Flow reversal was instituted.The flow reversal was again checked for flow and found to have good flow after clamping. We inserted a 5 x 35 balloon backloaded on the wire. The wire was passed through the lesion into the petrous portion of the internal carotid. The 5 balloon was then advanced to the lesion. Lesion was then predilated with a 5 mm balloon. Balloon was removed. We then inserted the 10/8 x 40 stent. This was deployed across the lesion without difficulty. The catheter was removed. Appeared to be still a slight amount of narrowing at the midportion of the stent. We then inserted a 5 x 25 balloon and redilated this area. Widely patent stent was then noted on fluoroscopy. The carotid was allowed to go 2 minutes with flow reversal. Completion angiogram was done at th at time which showed a widely patent carotid stent. At that point the common carotid artery was unclamped. The venous return tubing was clamped and removed from the TCAR sheath. The blood was allowed to flow back into the venous system. The TCAR sheath was then removed and the 5-0 Prolene suture securely tied. The patient was given 25 mg of protamine. Hemostasis was noted of the puncture site. An ACT was then drawn. The ACT was 133. The sheath was pulled from the groin and pressure was applied. Wound was irrigated with saline solution. Adequate hemostasis was obtained of the wound. Once this was noted the wound was closed in usual fashion using a 3-0 Vicryl suture for the subcutaneous layer and a 4-0 subcuticular Vicryl suture for the skin edges. Dermabond was used for dressing. The patient left the operation room in satisfactory condition and tolerated the procedure well. All needle and sponge counts were correct at the end of the procedure. Millie Persaud Pac assisted due to lack of resident availability and was necessary for positioning, draping, retraction, wound closure deep layers, subcutaneous tissue, and skin closure and was necessary for assisting with the case. I attest to the content of the Intraoperative Record and any orders documented therein. Any exceptions are noted below.
[2025-08-02] MEDS: ONDANSETRON INJ 2 MG/ML 2 ML VIAL IV PRN (10:08)
--- NOTE | 2025-08-02 10:51 | Anesthesiology Progress Note ---
Date of Service August 02, 2025 Anesthesia Post Procedure Vital Signs Vital Signs: Temp Pulse Pulse Resp BP BP BP 08/02/25 10:35 36.7 C 82 13 121/52 L 117/48 L 08/02/25 10:25 73 17 99/59 L 108/61 08/02/25 10:15 82 18 116/63 107/48 L 08/02/25 10:05 81 19 111/60 115/60 08/02/25 09:56 36.9 C 89 14 101/62 08/02/25 06:53 08/02/25 06:52 37.1 C 69 18 121/63 109/62 Pulse Ox O2 Del Method 08/02/25 10:35 97 Room Air 08/02/25 10:25 95 Room Air 08/02/25 10:15 99 Room Air 08/02/25 10:05 98 Room Air 08/02/25 09:56 100 Room Air 08/02/25 06:53 Room Air, Nasal Cannula 08/02/25 06:52 99 Room Air Pain Intensity Back: Pain Intensity: 5 Posterior Neck: Pain Intensity: 2 Transfer of Care Handoff Completed per policy Notes Mental Status: alert / awake / arousable Patient Amnestic to Procedure: Yes Nausea / Vomiting: adequately controlled Pain: adequately controlled Airway Patency, RR, SpO2: stable & adequate BP & HR: stable & adequate Hydration State: stable & adequate Anesthetic Complications: no major complications apparent
[2025-08-02] MEDS ORDERED: STAT IV Infusion **Titration per Protocol STA (10:59)
[2025-08-02] MEDS ORDERED: GABAPENTIN 600 MG TAB PO PRN (10:59)
[2025-08-02] MEDS ORDERED: CLOBETASOL PROPIONATE 0.05% CREAM 15 GM TUBE TOP PRN (10:59)
[2025-08-02] MEDS ORDERED: diphenhydrAMINE Capsule 25 MG CAP PO PRN (11:11)
[2025-08-02] MEDS ORDERED: ONDANSETRON 4 MG OD TAB PO PRN (11:12)
--- NOTE | 2025-08-02 11:31 | Critical Care Consultation ---
Date of Consultation August 02, 2025 Assessment & Plan (1) Amaurosis fugax of left eye: (2) Left carotid stenosis: (3) H/O transcarotid artery revascularization (TCAR): (4) Chronic kidney disease, stage 3a: (5) Hyperparathyroidism: (6) Diabetes mellitus type 2, controlled: (7) Seizure disorder: (8) Anxiety: (9) COPD (chronic obstructive pulmonary disease): Plan 65 yo, S/P TCAR on LCA, with h/o multiple episodes for Amaurosis Fugax, now admitted in ICU for observation post procedure. Past medical history significant for Seizure, HLD, COPD, ckd stage 3a, bradycardia on permanent dual chamber cardiac pacemaker( recently checked on Jun 2025). Neuro: - ICU- CAM: Neg - No neurology issue so far. - Intact neurology;continue neuro check Q 4 hr - H/o Seizure disorder: STABLE on Topiramate. Cardio: - No current cardiac sx. - h/o bradycardia on permanent pacemaker( recently checked). - Current Tele: Sinus rhythm - resolved cardiomyopathy Vascular: - Left TCAR done on 08/02/2025 via right femoral approach- tolerated procedure well. - Small hematoma in LCA site-- will monitor. - HD stable so far. MAP 62- 82 - IV fluids LR 100ml/hr-- anticipate BP maintain with fluid. - BP goal: <140 SBP; MAP > 65 - Nicardipine infusion if needed; order in. - DAPT : aspirin started, plavix to start tomorrow. - On ezetimibe Respi: - h/o COPD, STable. - Sats at RA. GI: - No current need. - Started diet post procedure; tolerated Endo: - h/o Type II DM. Diet controlled - ICU hypo/hyperglycemia protocol. ID: - Cefazolin ongoing for perioperative infection - Continue as per vascular. - MRSA nasal swab awaiting. Line: PIV, Arterial DVT prophylaxis: SCDs, avoid pharmacological for recent procedure. Dispo: Observe for 24 hour at ICU. Reassess by vacular tomorrow AM and possible DC. Supervising Physician Co-Signing Physician Notes Patient seen and examined. EMR reviewed. Discussed with bedside ICU nurse as well as with patient at bedside and family practice resident. Agree with assessment plan as noted. The patient is hemodynamically stable. She is neurologically intact. Her critical care issues have been well addressed by the vascular surgery service. Will continue to follow for blood pressure issues and neurological status overnight. Thanks for the opportunity participate in care of this patient. Will continue to follow with you History of Present Illness Attending Physician: Roland Bowen MD History of Present Illness 65 yo, S/P TCAR on LCA, h/o multiple episodes for Amaurosis Fugax. PMH : Seizure, HLD, COPD, CKD stage 3a Underwent Left TCAR through Right femoral. Discussed with bedside RN- no complication reported post- procedure except from blood pressure being on lower side. She was shifted to ICU for monitoring post- procedure. Patient feeling overall great, no voice changes, neck tightness, neck pain, swelling, and difficulty swallowing post procedure. She was feeling cold and trembling, has already started eating, no nausea, vomiting or SOB. Allergies Allergy/AdvReac Type Severity Reaction Status Date / Time cyclobenzaprine Allergy Severe Burning Verified 08/02/25 06:39 [From Flexeril] tongue, nightmares, itching empagliflozin Allergy Severe "My whole Verified 08/02/25 06:39 [From Jardiance] face sucked in" ciprofloxacin [Cipro] Allergy Mild Rash, Verified 08/02/25 06:39 itching morphine Allergy Mild Itching Verified 08/02/25 06:39 divalproex sodium AdvReac Severe Gastrointestinal Verified 08/02/25 06:39 [From Depakote] Upset metformin AdvReac Severe Nausea, Verified 08/02/25 06:39 vomiting, diarrhea Penicillins AdvReac Severe Rash Verified 08/02/25 06:39 quetiapine [From Seroquel] AdvReac Severe Metal taste Verified 08/02/25 06:39 trazodone AdvReac Severe Gastrointestinal Verified 08/02/25 06:39 Upset varenicline AdvReac Severe Bad Verified 08/02/25 06:39 nightmares NSAIDS (Non-Steroidal AdvReac Intermediate Nausea, Verified 08/02/25 06:39 Anti-Inflamma vomiting, diarrhea Home Medications Medication Instructions Recorded Confirmed Type diphenhydramine HCl 50 mg capsule 50 mg PO HS PRN Sleep 09/23/20 08/02/25 History ([employer] [facility]) ondansetron HCl 4 mg tablet 4 mg PO Q8H PRN nausea and 07/30/24 08/02/25 Rx vomiting #30 tabs Portable Supplemental Oxygen and #1 ea 08/13/24 07/27/25 Rx Concentrator buspirone 10 mg tablet 10 mg PO TID #270 tabs 11/10/24 08/02/25 Rx metoprolol succinate 25 mg 25 mg PO QAM 04/29/25 08/02/25 History tablet,extended release 24 hr sertraline 100 mg tablet (Zoloft) 150 mg PO HS 04/29/25 08/02/25 History inogen machine #1 ea 05/11/25 07/27/25 Rx hydroxyzine HCl 10 mg tablet 20 mg (2 x 10 mg) PO TID PRN 05/31/25 08/02/25 Rx anxiety #180 tabs methocarbamol 500 mg tablet 500 mg PO BID #60 tabs 05/31/25 08/02/25 Rx potassium chloride 10 mEq 10 meq PO DAILY #90 tabs 07/07/25 08/02/25 Rx tablet,extended release (Klor-Con) ezetimibe 10 mg tablet (Zetia) 10 mg PO DAILY #30 tabs 07/12/25 08/02/25 Rx tramadol 50 mg tablet 50 mg PO QID PRN pain #120 tabs 07/23/25 08/02/25 Rx zolpidem 5 mg tablet (Ambien) 5 mg PO HS #30 tabs 07/23/25 08/02/25 Rx aspirin 81 mg tablet 81 mg PO DAILY #100 tabs 07/27/25 08/02/25 Rx clopidogrel 75 mg tablet 75 mg PO DAILY #30 tabs 07/27/25 08/02/25 Rx topiramate 200 mg tablet 200 mg PO BID #60 tabs 07/27/25 08/02/25 Rx clobetasol 0.05 % topical cream 1 applic topical DAILY PRN Rash 07/29/25 08/02/25 History gabapentin 600 mg tablet 600 mg PO TID PRN Pain 07/30/25 08/02/25 History Patient History Medical History Amaurosis fugax of left eye Anxiety Arthritis Cardiomyopathy Carotid stenosis Cervical spinal stenosis Chronic kidney disease (CKD) Stage 3 Chronic pain syndrome COPD (chronic obstructive pulmonary disease) Hx O2 1L NC PRN (has not used in months) Degenerative disc disease Depression History of anemia History of blood transfusion 1989 perioperative, ~7 months ago d/t anemia History of stroke x2 in 2005 (prior to my brain surgery) Difficulty with short term memory and right sided weakness (refuses to use cane or walker) Hx MRSA infection Toe, Remote hx "long time ago"- treated in [place] Hx of cardiac pacemaker Implanted 2018, [employer] [facility], checked Hx of concussion Hx of diabetes mellitus Hx need for insulin use ("no longer needs medications due to weight loss") Hx of seizure disorder Initial seizure 2019 [place] [facility] Hyperlipidemia Hyperparathyroidism Hypertension Pulmonary nodules Monitored Syncope Hx periodic convulsive syncope per [facility] [place] Urge incontinence Urinary urgency Weight loss, unintentional Early 2023 weighed 170lbs Surgical History H/O breast reconstruction H/O cerebral aneurysm repair (2006) [facility] [place] H/O cervical discectomy Unsure of levels x2 surgeries (~5 years ago) History of back surgery Lumbar surgeries x 5 total Lumbar fusions with hardware (L1-S1), Currently has broken carlotta (encased) History of bronchoscopy Remote history - benign biopsy History of cardiac cath (2022) 4 total, most recent 2022 No stents History of colonoscopy History of esophagogastroduodenoscopy (EGD) History of hysterectomy with bilateral oophorectomy History of left mastectomy Fibrocystic changes removed ("did not have breast cancer") No limb restrictions per patient History of liver biopsy Remote history - benign findings History of open reduction and internal fixation (ORIF) procedure B/L ankles fracture repairs (~10 years ago) Hx laparoscopic cholecystectomy Hx of arthroscopy of shoulder R/L rotator cuff repairs Status post placement of implantable loop recorder 2015, subsequently removed Family History Mother Clotting disorder Cancer bladder Father Prostate cancer Diabetes Cerebral aneurysm Heart disease Cancer Hypertension Stroke Sister Diabetes Dementia Kidney disease COPD (chronic obstructive pulmonary disease) Parkinson disease Brother Diabetes Lung cancer Grandmother Diabetes Cancer Family/Other Breast cancer Grandmother (Maternal) Myocardial infarction Other No family history of adverse response to anesthesia Denies family history of Ovarian cancer Colorectal cancer Social History Smoking Status: Current every day smoker Tobacco Type: Cigarettes Age Started Using Tobacco: 12; packs per day: 0.5; Cigarettes Per Day: < 1/2 PPD (advised); Second Hand Exposure: No; Do You Dip or Chew Tobacco: No; Tobacco Cessation Education Requested by Patient: No Hx Alcohol Use: No Preferred Language: Irish Communication Ability: Effective Visual Impairment: No Limitations Hearing Ability: Normal Raw Cheese Worker Required: No Beliefs That Will Affect Care: None marital status: Current Living Situation: Spouse current occupational status: disabled How many Children do You have: 2 Other Information That Helps Us Care for You: No Feels Safe at Home: Yes Safety Concerns: Feels Safe At This Time Childhood Exposure to Second-Hand Smoke: Yes Diet: regular caffeine: Yes during the past year weight has: decreased > 10 lbs Dental Care, Regularly: No Physical Activity Frequency: Does not Exercise Seatbelt Use: always Sunscreen Use: No Do you think of yourself as: straight/heterosexual Gender Identity: Female Assistive Devices: Denture - Upper, Denture - Lower and Glasses Review of Systems Review of Systems: As per HPI Physical Exam Physical Exam: Constitutional: Well appearing, No acute distress, Pale looking, PIV insitu, arterial line in place, Pacemaker in situ. HEENT: Atraumatic, Normocephalic, No conjunctival injection CVS: S1 S2 no murmur, Regular Rhythm, no LE edema Left carotid artery TCAR area bruised w/o hematoma. Right femoral catheterization site normal looking, no bruise, no swelling. Carotid Bruits appreciated on right. Respiratory: BL equal air entry with NVBS. No rhonchi, wheezes, or crackles. No increased work of breathing. Normal voice. GI: Soft, Nondistended, Nontender, Normal Bowel sounds + MSK: No gross deformities noted Skin: Warm, Dry Neuro: Alert, Oriented to TPP, No Focal deficit Grossly intact sensory, motor and cranial nerve II-XII Psych: Mood and Affect congruent, Cooperative on exam Results & Data Results & Data Vital Signs (Past 12 Hours) Vital Signs Temp Pulse Pulse Resp BP BP BP 08/02/25 11:13 08/02/25 10:35 36.7 C 82 13 121/52 L 117/48 L 08/02/25 10:25 73 17 99/59 L 108/61 08/02/25 10:15 82 18 116/63 107/48 L 08/02/25 10:05 81 19 111/60 115/60 08/02/25 09:56 36.9 C 89 14 101/62 08/02/25 06:53 08/02/25 06:52 37.1 C 69 18 121/63 109/62 Pulse Ox O2 Del Method 08/02/25 11:13 Room Air 08/02/25 10:35 97 Room Air 08/02/25 10:25 95 Room Air 08/02/25 10:15 99 Room Air 08/02/25 10:05 98 Room Air 08/02/25 09:56 100 Room Air 08/02/25 06:53 Room Air, Nasal Cannula 08/02/25 06:52 99 Room Air Resident Activity Tracking Resident Involvement: Resident Care Provided Care Provided: Adult Hospital Medicine (9) COPD (chronic obstructive pulmonary disease) COPD type: emphysema Emphysema type: unspecified Qualified Code(s): J43.9 - Emphysema, unspecified
[2025-08-02] MEDS: ASPIRIN 81 MG CHEW ONE (11:37)
--- NOTE | 2025-08-02 13:40 | Billing Data ---
Date of Service August 02, 2025 Coding Level of Care Code 46108 INT INP/OBS CARE
[2025-08-02] MEDS: busPIRone 5 MG TAB PO SCH (14:10)
[2025-08-02] MEDS: ZOLPIDEM TARTRATE 5 MG TAB PO SCH (21:29)
[2025-08-02] MEDS: METHOCARBAMOL 500 MG TABLET PO SCH (21:30)
[2025-08-02] MEDS: SERTRALINE HCL 50 MG TABLET PO SCH (21:30)
[2025-08-02] MEDS: TOPIRAMATE 100 MG TAB PO SCH (21:30)
[2025-08-03] MEDS: PHENYLEPHRINE/NSS 25 MG/250 ML BAG IV PRN (00:49)
--- NOTE | 2025-08-03 08:09 | Discharge Summary ---
Date of Service August 03, 2025 Admission HPI Per Admitting Provider Chief Complaint rm#1 amaurosis fugax started which started about 3 months ago but 2 weeks ago area of amaurosis has increased and is happening more frequently. Weakness and hand shaking left hand. Restarted smoking in December. She has now cut back to less than 0.5 ppd. Reason for Consultation Symptomatic left internal carotid artery stenosis History of Present Illness I had the pleasure of seeing Marzena for evaluation of her left internal carotid artery stenosis. As you know she is a 65-year-old female whose had multiple bouts of amaurosis fugax of the left eye. The worst 1 being well 2 weeks prior to this at which point she went completely blind in her left eye at [facility] which lasted for about 15 to 20 minutes and then totally resolved. Since then she has had multiple involvement of the smaller sections of her eye with small areas of total blindness that come and go. She denies any focal deficits of weakness of her arms or legs, facial droop, or slurred speech during these episodes. She did have a CT angiogram done in the past which showed greater 90% narrowing of her left internal carotid artery. She was scheduled for endarterectomy in the past but had hypokalemia and the surgery was canceled. Since then she has not heard anything about rescheduling her surgery. Referred here for second opinion. Patient here really you should hear October with high-pitched whistle all yeah Review of Systems 10 systems are reviewed. Only positive findings are occasional palpitations and the history of present illness. Physical Exam Vitals & Measurements HR: 68 (Monitored) BP: 124/80 SpO2: 99% WT: 46.5 kg WT: 46.500 kg (Dosing) Input and Output - Last 24 hours (Last 8 hours) No I/O Data Found: On physical exam she is awake alert and oriented x 3. Her blood pressure is 130/82 in the left and 124/80 on the right. Her radials and carotids are +2 bilaterally. There is a very loud high-pitched left carotid bruit. Lungs are clear heart irregular rhythm. Abdominal is benign. No abnormal dilatation is appreciated. Femorals and pedal pulses are +2 bilaterally. Neurologic exam grossly intact motor and sensory function. Diagnostic Results CT angiogram showed 90% narrowing of her left internal carotid artery. Assessment/Plan 1. Amaurosis fugax of left eye 2. Carotid stenosis, bilateral We did agree with the recommendations from her first surgeon of intervention for her carotid artery. At this point she would like it to be done by our group. We went over endarterectomy versus TCAR along with the risks and options both procedures. She would much rather have a TCAR if she was a candidate. Looking at the CT scan she is a good candidate for a TCAR approach. She understood the risks options benefits which are documented consent form. Being that she is fairly symptomatic we will do Plavix testing at this week and have her scheduled for left TCAR this coming Saturday. Thank you very much for letting us participate in the care of this patient. Sincerely, Johnny Bowen MD Attestation I have personally spent ___45__ minutes performing tiya-lm-[id number] and mwr-aewf-cw-face activities on this date of service. Activities Include: _x_ review of the medical record _x_ obtaining a history __x physical exam/evaluation __ review labs __x review radiology reports _x_ counseling/educating patient/family/caregiver __ discussion/referral to other healthcare professional _x_ documenting care in the medical record __x independent interpretation of results cta at [facility] __ communication of results to patient/family/caregiver __ coordination of care Problem List/Past Medical History Ongoing Abdominal wall mass Amaurosis fugax of left eye Aneurysm Arthritis Cardiomyopathy Cervical spinal stenosis Cervicalgia Chronic kidney disease, stage 3a Chronic obstructive pulmonary disease (COPD) Chronic pain syndrome Concussion DDD (degenerative disc disease), cervical Dizziness Dyspnea Falls Gross hematuria HEADACHE Headache History of anemia History of back problems History of cardiac pacemaker History of seizure disorder History of stroke Hyperlipidemia Hyperparathyroidism HYPERTENSION Left carotid artery stenosis Lichen sclerosus of female genitalia On home O2 Pleuritic pain Pulmonary nodules Syncope T2DM (type 2 diabetes mellitus) Tobacco user Urge incontinence Urinary urgency Vertigo Vitamin D deficiency Weight loss Weight monitoring Procedure/Surgical History Discectomy Cholecystectomy Breast reconstruction Brain aneurysm Back fusion Hysterectomy Medications Home aspirin(aspirin 81 mg oral delayed release tablet), 81 mg= 1 tab, PO, Daily atorvastatin(Lipitor 20 mg oral tablet), 20 mg= 1 tab, PO, Daily busPIRone(busPIRone 10 mg oral tablet), 10 mg= 1 tab, PO, tid clobetasol topical(clobetasol 0.05% topical cream), 1 appl, topical, Daily clopidogrel(clopidogrel 75 mg oral tablet), 75 mg= 1 tab, PO, Daily ezetimibe(ezetimibe 10 mg oral tablet) gabapentin(gabapentin 600 mg oral tablet) hydrOXYzine(hydrOXYzine hydrochloride 10 mg oral tablet), 20 mg= 2 tab, PO, tid, PRN methocarbamol(methocarbamol 500 mg oral tablet) metoprolol(Metoprolol Succinate ER 25 mg oral tablet, extended release) ondansetron(ondansetron 4 mg oral tablet), 4 mg= 1 tab, PO, tid, PRN potassium chloride(Potassium Chloride (Eqv-K-Tab) 10 mEq oral tablet, extended release) sertraline(Zoloft 100 mg oral tablet), 150 mg= 1.5 tab, PO, Daily topiramate(Topamax 100 mg oral tablet), 200 mg= 2 tab, PO, bid traMADol(traMADol 50 mg oral tablet), 50 mg= 1 tab, PO, q4h, PRN zolpidem(zolpidem 5 mg oral tablet), 5 mg= 1 tab, PO, qhs, PRN Allergies Cipro (Mild) Chantix hives QUEtiapine Metallic taste cyclobenzaprine Burning tongue, Nightmares, Itching divalproex sodium Gastrointestinal upset empagliflozin whole face sucked in metFORMIN Vomiting, Diarrhea morphine itching nonsteroidal antiinflammatory agent penicillin traZODone Gastrointestinal upset Social History Smoking Status Current every day light smoker Tobacco Use:Current every day smoker Type:Cigarettes Tobacco use per day:10 Number of years:53 Started at age:12Years Family History Aneurysm: Father. Bladder cancer: Mother. Diabetes: Father. Seizure: PGM. Health Status Family Member(s) Signature Line Electronic Signature on File Roland Bowen MD Author Signature Dt/Tm: 07/29/2025 10:00 AM Stress Test Technician Kumar Terry [facility] [place], [address] [place] [address] [id number] Result Type: .Outpt Ltr Date of Service: July 29, 2025 08:35 EST Authorization Status: Final Subject: Consult Note Author or Import Date: MD Bowen Eugene J on July 29, 2025 10:00 EST Verified By: MD Bowen Eugene J on July 29, 2025 10:00 EST Encounter info: [id number], [facility], Clinic, 07/29/2025 - 07/29/2025 Admission Exam Per Admitting Provider On physical exam she is awake alert and oriented x 3. Her blood pressure is 130/82 in the left and 124/80 on the right. Her radials and carotids are +2 bilaterally. There is a very loud high-pitched left carotid bruit. Lungs are clear heart irregular rhythm. Abdominal is benign. No abnormal dilatation is appreciated. Femorals and pedal pulses are +2 bilaterally. Neurologic exam grossly intact motor and sensory function. Principal Diagnosis Symptomatic left internal carotid artery stenosis Discharge Exam Constitutional WD/WN, vitals as above Neck trachea midline Respiratory normal respiratory effort; no respiratory distress Cardiovascular Rate/Rhythm: regular rate and regular rhythm Skin + incision (dry and clean, min ecchymosis, no swelling) Neurologic CN's II-XI intact bilaterally and moves all extremities Psychiatric A+Ox3, euthymic affect Discharge Data Allergies Allergy/AdvReac Type Severity Reaction Status Date / Time cyclobenzaprine Allergy Severe Burning Verified 08/02/25 06:39 [From Flexeril] tongue, nightmares, itching empagliflozin Allergy Severe "My whole Verified 08/02/25 06:39 [From Jardiance] face sucked in" ciprofloxacin [Cipro] Allergy Mild Rash, Verified 08/02/25 06:39 itching morphine Allergy Mild Itching Verified 08/02/25 06:39 divalproex sodium AdvReac Severe Gastrointestinal Verified 08/02/25 06:39 [From Depakote] Upset metformin AdvReac Severe Nausea, Verified 08/02/25 06:39 vomiting, diarrhea Penicillins AdvReac Severe Rash Verified 08/02/25 06:39 quetiapine [From Seroquel] AdvReac Severe Metal taste Verified 08/02/25 06:39 trazodone AdvReac Severe Gastrointestinal Verified 08/02/25 06:39 Upset varenicline AdvReac Severe Bad Verified 08/02/25 06:39 nightmares NSAIDS (Non-Steroidal AdvReac Intermediate Nausea, Verified 08/02/25 06:39 Anti-Inflamma vomiting, diarrhea Consultations 08/02/25 10:59 Consult Garden Machinery Mechanic Routine Procedures Performed Operation Date: 08/02/25 08:00 Actual Procedures p Left Transcarotid Artery Revascularization(Left) - Roland Bowen MD Ordered Studies 08/02/25 07:17 EV angio carotid cerv LT Routine Hospital Course (1) S/P vascular surgery: POD 1 from a left tcar. Surgery uneventful. D/C today. Total Time Total Time Spent Total Time Spent (In Minutes): x Discharge Plan Discharge Items Patient Disposition: Home - Self-Care Reason For Visit: Symptomatic Left Internal Carotid Artery Stenosis Discharge Diagnosis: Symptomatic left internal carotid artery stenosis Non-emergency contact: Surgeon Call non-emergency contact if: your temperature is above 101.5, your wound has increased redness, your wound has increased drainage and your wound pain has increased Follow-up/Referrals: Evy Mccallum DO [Primary Care Provider] - Diet: Heart Healthy Addtl Attending Provider Instructions: SPECIAL CARE INSTRUCTIONS: Diet: * You may return to previous diet. Medications: * Continue to take Aspirin, Plavix, and statin as directed. Take nonstop for 30 days after surgery. Then continue unless changed by our office. Incision Care: * You may shower, but do not rub incision. You may let the warm soapy water run over it. Be sure to dry the incision well after bathing. * Do not shave directly over the incision until it is healed. * DO NOT IMMERSE THE INCISION IN A TUB/POOL/etc. UNTIL HEALED. Restrictions: * Do not drive for at least one week or if you are still taking any narcotic pain medication. * Do not lift anything heavier than a gallon of milk for one week after going home. Possible Complications: * Numbness - It is normal to have some numbness around the incision. Numbness can extend beyond the incision to areas of the neck, ear and face. The numbness is due to bruising of nerves during the surgery and will gradually improve over a period of months. * Hoarseness/Difficulty Speaking and Swallowing - The bruising of nerves in the neck can also cause a hoarse voice, difficulty speaking or swallowing. This may improve over time, HOWEVER, if it continues for more than a few days please contact our office ([phone]). * Excessive Swelling - There will be some swelling immediately after surgery which usually resolves within one week. If you notice that the swelling is getting worse, notify your surgeon ([phone]). * Drainage/Bleeding - If there is any drainage or bleeding, it should be a very small amount (less than a teaspoon per day). If you have excessive bleeding or drainage from the incision, call your surgeon ([phone]) right away. ACTIVATION OF EMERGENCY MEDICAL SYSTEM: Call 911, immediately, if you experience any of the following: Warning Signs and Symptoms of Stroke: * Sudden numbness or weakness of the face, arm or leg, especially on one side of the body * Sudden confusion, trouble speaking or understanding * Sudden trouble seeing in one or both eyes * Sudden trouble walking, dizziness, loss of balance or coordination * Sudden severe headache with no cause Do not delay calling 911 if you experience any warning signs or symptoms of a stroke. Delay in seeking medical attention may affect what treatments can be given to you. Risk Factors for Stroke: You can reduce your chances of stroke by working with your medical provider to adopt a healthy lifestyle. Some specific ways to lower your chance of stroke are: * If you are a smoker, now is the time to stop smoking cigarettes * If you are diabetic, improve the control of your blood sugars * Avoid excessive amounts of alcohol * Control high blood pressure * Lose weight if you are overweight * Be sure to lead an active lifestyle * Eat a healthy diet low in salt, cholesterol and fat You should know about other risk factors for stroke that you are unable to control. These include: * Age 55 years or older * Male gender * Certain racial groups: , or / * Family History of Stroke, Mini stroke or Heart Attack * Sickle Cell Disease You will be receiving a call from the Vascular Surgery Nurse after you are discharged. FOLLOW UP VISIT: It is important for you to keep your follow up appointments with your medical provider. Keep any scheduled doctor appointments. Call [phone] to schedule a follow up appointment if one not already scheduled. Pending Studies at Discharge: No Stand-Alone Forms: [facility] [employer], Smoking Cessation Medications and DC Order Prescriptions: New oxycodone-acetaminophen 5-325 mg Tablet 1 tab PO Q6H PRN (Reason: pain) Qty: 30 0RF Continued ondansetron HCl 4 mg tablet 4 mg PO Q8H PRN (Reason: nausea and vomiting) Qty: 30 0RF (DME) Portable Supplemental Oxygen and Concentrator See Rx Instructions .Route .MEDSUPPLY Qty: 1 0RF Rx Instructions: Use 1L via nasal canula with any exertion buspirone 10 mg tablet 10 mg PO TID Qty: 270 3RF (DME) inogen machine See Rx Instructions .Route .MEDSUPPLY Qty: 1 0RF Rx Instructions: Use with ambulation. Needs to be on Setting #1 hydroxyzine HCl 10 mg tablet 20 mg PO TID PRN (Reason: anxiety) Qty: 180 3RF methocarbamol 500 mg tablet 500 mg PO BID Qty: 60 2RF ezetimibe [Zetia] 10 mg tablet 10 mg PO DAILY Qty: 30 2RF tramadol 50 mg tablet 50 mg PO QID PRN (Reason: pain) Qty: 120 0RF Rx Instructions: warn of drowsiness. zolpidem [Ambien] 5 mg tablet 5 mg PO HS Qty: 30 0RF diphenhydramine HCl [Unisom SleepGels] 50 mg capsule 50 mg PO HS PRN (Reason: Sleep) clopidogrel 75 mg tablet 75 mg PO DAILY Qty: 30 2RF aspirin 81 mg tablet 81 mg PO DAILY Qty: 100 3RF topiramate 200 mg tablet 200 mg PO BID Qty: 60 5RF potassium chloride [Klor-Con 10] 10 mEq tablet extended release 10 meq PO DAILY Qty: 90 3RF sertraline [Zoloft] 100 mg tablet 150 mg PO HS metoprolol succinate 25 mg tablet extended release 24 hr 25 mg PO QAM clobetasol 0.05 % cream 1 applic topical DAILY PRN (Reason: Rash) Rx Instructions: Apply to affected area once daily at bedtime for 2 weeks, then decrease to using MWF gabapentin 600 mg tablet 600 mg PO TID PRN (Reason: Pain) Discharge Orders: Discharge Order (Routine); Ordered 08/03/25 Ordered By: Roland Bowen Admission Data Admit Date/Time: 08/02/25 07:49 Attending Provider: Roland Bowen Admit Provider: Roland Bowen Primary Care Provider: Evy Mccallum Other Providers: Musa Scott; Black Beltrán; Micky Bernard; Mattie Wynn; Quinton Luna; Eusebia Duckworth; Cornell Mcnulty; Jadiel Herron; Madeline Malloy; Shital Jiménez; Richard Miranda; Bethanie Cazares
--- NOTE | 2025-08-03 08:09 | Surgery Progress Note ---
Date of Service August 03, 2025 Assessment & Plan (1) S/P vascular surgery: Plan: POD 1 from a left tcar. Surgery uneventful. D/C today. Admission and Anticipated Discharge Date Admission Date: August 02, 2025 Subjective Patient only complains of incision pain. No motor or sensory deficit complains. No difficulty swallowing. Physical Exam Constitutional: WD/WN, vitals as above Neck: trachea midline Respiratory: normal respiratory effort; no respiratory distress Cardiovascular: Rate/Rhythm: regular rate and regular rhythm Skin: + incision (dry and clean, min ecchymosi s, no swelling) Neurologic: CN's II-XI intact bilaterally and moves all extremities Psychiatric: A+Ox3, euthymic affect Results & Data Vital Signs (Past 12 Hours) Vital Signs Temp Pulse Resp BP BP Pulse Ox 08/03/25 07:04 102/70 08/03/25 07:03 64 19 08/03/25 07:00 60 18 96 08/03/25 05:00 104/42 L 08/03/25 05:00 61 15 96 08/03/25 04:00 60 18 99 08/03/25 04:00 115/53 L 08/03/25 03:30 60 17 98 08/03/25 03:00 60 16 100 08/03/25 03:00 119/52 L 08/03/25 02:30 60 16 100 08/03/25 02:00 60 15 99 08/03/25 01:30 60 14 100 08/03/25 01:30 131/55 L 08/03/25 01:04 130/72 08/03/25 01:00 119/53 L 08/03/25 01:00 60 13 100 08/03/25 01:00 119/53 L 08/03/25 00:52 106/45 L 08/03/25 00:45 63 18 99 08/03/25 00:42 60 15 100 08/03/25 00:30 60 15 100 08/03/25 00:21 71 21 97 08/03/25 00:00 64 14 91 08/03/25 00:00 107/58 L 08/03/25 00:00 60 08/02/25 23:00 36.5 C 61 16 117/68 90 08/02/25 22:00 63 13 100 08/02/25 22:00 123/69 08/02/25 21:00 110/55 L 08/02/25 21:00 60 22 99
[2025-08-03] MEDS: METOPROLOL SUCC 25MG EXT REL TAB PO SCH (08:32)
[2025-08-03] MEDS: POTASSIUM CHLORIDE 10 MEQ TABCR PO SCH (08:34)
[2025-08-03] MEDS: ASPIRIN 81 MG ECTAB PO SCH (08:35)
[2025-08-03] MEDS: EZETIMIBE 10 MG TAB PO SCH (08:35)
[2025-08-03] MEDS: CLOPIDOGREL BISULFATE 75 MG TAB PO SCH (08:36)
[2025-08-03 09:27] VITALS: TEMP 98.2
[2025-08-03 10:42] VITALS: BP 113/62; PULSE 61; RESP 20; O2SAT 100
== END 2025-08-03 10:48 | disposition home or self-care (01) | DRG 35 ==
LOC: ASU 06:46 → 1E 07:49
PROC: EV.TCAR (2025-08-02 08:00)